=== PATIENT | female | born 1930 | race Caucasian/White ===

== ENCOUNTER 2017-12-01 11:52 | Inpatient (IN) ==
[2017-12-01] MEDS ORDERED: SALINE FLUSH 10ml SYRINGE IVF PRN (12:17)
[2017-12-01] MEDS ORDERED: NS 1,000 ML IV SCH (12:30)
[2017-12-01] MEDS ORDERED: ALBUTEROL/IPRATROPIUM 2.5mg-0.5mg/3ml NEB AEROSOL ONE (12:33)
[2017-12-01] MEDS: ACETAMINOPHEN 500 MG TABLET PO PRN (12:57)
[2017-12-01] MEDS ORDERED: LEVOFLOXACIN PB 750 MG/150 ML BAG IV ONE (12:58)
--- NOTE | 2017-12-01 13:52 | Emergency Department Report ---
General Adult HPI - General Chief complaint: Shortness of Breath/Dyspnea <December,Ozzie 12/01/17 14:00> Stated complaint: pain from one side, around back to other side <December,Ozzie 12/01/17 14:00> Source: patient <Kanika Linares 12/01/17 13:58> Mode of arrival: EMS <Kanika Linares 12/01/17 13:58> Limitations: no limitations <Kanika Linares 12/01/17 13:58> - History of Present Illness HPI narrative: Pt presents with a complaint of right sided pain which started during the night. She reports relief with heat and changing positions. She noted a fever this am. Denies N/V/D, diaphoresis, radiation, or dizziness. She does have a history of COPD, uses inhalers, but does not use home O2. <Kanika Linares 12/01/17 13:58> Onset (ago): hour(s) <Kanika Linares 12/01/17 13:58> - Related Data Home Medications Medication Instructions Recorded Confirmed Albuterol Sulfate [Proventil Hfa 2 puff INH QID PRN 12/01/17 12/01/17 90mcg] Gabapentin [Gabapentin] 300 mg PO TID 12/01/17 12/01/17 Levothyroxine Tab [Synthroid] 25 mcg PO ACB 12/01/17 12/01/17 PredniSONE [Deltasone 5 mg] 5 mg PO DAILY 12/01/17 12/01/17 Sertraline [Zoloft] 50 mg PO DAILY 12/01/17 12/01/17 Trazodone [Desyrel] 150 mg PO HS 12/01/17 12/01/17 hydroCHLOROthiazide 25 mg PO DAILY 12/01/17 12/01/17 [Hydrochlorothiazide] sulfaSALAzine [Sulfasalazine] 1,000 mg PO TID 12/01/17 12/01/17 Previous Rx's Medication Instructions Recorded Xanax (alprazolam) 0.5 mg tablet 1 mg PO HS #60 tab 11/13/17 <December,Ozzie 12/01/17 14:00> Allergies Allergy/AdvReac Type Severity Reaction Status Date / Time nitrofurantoin Allergy Severe Hives Verified 12/01/17 12:16 azithromycin Allergy Unknown EXTREME Verified 12/01/17 12:08 BOWEL UPSET <eb 12/01/17 14:00> Review of Systems All systems: reviewed and negative except as stated <Kanika Linares 13:58> Constitutional: Reports: as per HPI <Kanika Linares 12/01/17 13:58> Cardiovascular: Reports: as per HPI <Kanika Linares 12/01/17 13:58> Respiratory: Reports: as per HPI <Kanika Linares 12/01/17 13:58> Gastrointestinal: Reports: as per HPI <Kanika Linares 12/01/17 13:58> Musculoskeletal: Reports: as per HPI <Kanika Linares 12/01/17 13:58> Neurological: Reports: as per HPI <Kanika Linares 12/01/17 13:58> [facility] Medical History (Last Reviewed 08/29/17 @ 10:49 by Jaison Perez MD) Osteoarthritis of both knees (Chronic Medical) Generalized osteoarthritis (Chronic Medical) Osteoarthritis of left shoulder (Chronic Medical) Insomnia (Chronic Medical) Hypercalcemia (Chronic Medical) Depression (Chronic Medical) COPD (chronic obstructive pulmonary disease) (Chronic Medical) Chronic colitis (Chronic Medical) Benign essential hypertension (Chronic Medical) Good control. 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 Thyroid cancer (Chronic Medical ~2007) No clinical evidence of cancer recurrence. Hyperparathyroidism, primary (Chronic Medical ~2006) Asymptomatic. Asthma (Acute Medical) DJD of shoulder (Chronic Medical) Hay fever (Chronic Medical) Thyrotoxicosis (Resolved Medical) Hx of severe sun exposure (Inactive Medical) Malignant neoplasm of breast (Inactive Medical) Ovarian cancer (Inactive Medical) Pulmonary embolism (Inactive Medical) <December,Ozzie 12/01/17 14:00> Surgical History: both rotator cuffs replacement <Kanika Linares 13:58> Family History: Family History (Last Reviewed 08/29/17 @ 10:49 by Jaison Perez MD) Sister Thyroid disease Cancer of breast Father Heart disease Mother Heart disease Brother Cancer of lung Brother Cancer of colon Brother Cancer of kidney Sister Cancer of lung <December,Ozzie 12/01/17 14:00> - Social History Smoking status: Former smoker <VijayKanika R Curt 12/01/17 13:58> Substance use type: does not use <VijayKanika R Curt 12/01/17 13:58> Alcohol intake: current <Kanika Linares 12/01/17 13:58> Alcohol intake frequency: holidays/special occasions only <VijayKanikafranklin Elias 12/01/17 13:58> Household members: none <Kanika Linares 12/01/17 13:58> Current occupational status: retired <VijayKanika R 12/01/17 13:58> Physical Exam - Limitations Limitations: no limitations <VijayKanika R Curt 12/01/17 13:58> - General General appearance: alert, in no apparent distress <Kanika Linares Curt 12/01 13:58> - Normal Exams: Head:: Normocephalic without trauma <VijayKanika Andree 12/01/17 13:58> Eyes:: Pupils are PERRLA w/ EOMI <VijayKanika R 12/01/17 13:58> Neck:: Full range of motion, without adenopathy <VijayKanika Andree 13:58> Cardiovascular:: Regular rate and rhythm, without murmur or gallop, Pulses 2+ all extremities, capillary refill, <2 seconds all extremities <Vijay Kanika R 12/01/17 13:58> Abdomen:: Bowel sounds positive, soft, non-tender, non-distended <Kanika Linares 12/01/17 13:58> Musculoskeletal:: No tenderness, or deformity noted, good range of motion, all extremities <VijayKanika R 12/01/17 13:58> Integumentary:: No rashes <Kanika Linares 12/01/17 13:58> Neurological:: Patient is alert, and oriented, cranial nerves, motor/sensory/ cerebellar, exams w/o gross deficits, to observation <Kanika Linares 13:58> Psychiatric:: Patient exhibits, appropriate attention, emotion and affect < Kanika Linares 12/01/17 13:58> - Expanded Respiratory Exam Location: Left: decreased breath sounds, Right: decreased breath sounds, Lower: decreased breath sounds <Kanika Linares 12/01/17 13:58> Course Vital Signs Temperature 102.4 F H 12/01/17 11:55 Pulse Rate 111 H 12/01/17 11:55 Respiratory Rate 43 H 12/01/17 11:55 Blood Pressure 123/57 12/01/17 11:55 Pulse Oximetry 82 L 12/01/17 11:55 Temperature 102.4 F H 12/01/17 11:57 Pulse Rate 93 12/01/17 12:04 Respiratory Rate 16 12/01/17 12:42 Blood Pressure 123/57 12/01/17 12:00 Pulse Oximetry 94 12/01/17 12:42 <DecemberOzzie 12/01/17 14:00> Medical Decision Making - [facility] Narrative Medical decision making narrative: Labs, X ray, and EKG reviewed. Results consistent with a RLL pneumonia. Tylenol given for fever. NS initiated. Blood cultures obtained. Levofloxacin started. Pt requiring O2 of 2-4 l nc to maintain SpO2 90-94. Findings and plan discussed with pt. Hospitalist notified of need for admission. <Kanika Linares 12/01/17 13:58> - Differential Diagnosis AMI, atypical chest pain, pneumonia, COPD exacerbation <Kanika Linares 12/01/17 13:58> - Lab Data Lab results reviewed: Yes: I reviewed the patient's lab results. <Kanika Linares 12/01/17 13:58> Result diagrams: 12/01/17 12:31 12/01/17 12:30 <DecemberOzzie [facility] 12/01/17 14:00> Lab Results 12/01/17 12/01/17 12/01/17 Range/Units 12:30 12:31 13:29 WBC 14.2 H (4.5-11.0) T/MM3 RBC 4.28 (4.00-5.20) M/MM3 Hgb 11.9 L (12-16) GM/DL Hct 37.8 (36-46) % MCV 88.3 (80-100) UM3 MCH 27.8 (26-34) UUG MCHC 31.5 (31-37) GM/DL RDW Std Deviation 48.1 (36.9-50.2) FL Plt Count 250 (130-400) T/MM3 MPV 8.7 L (9.4-12.4) UM3 Immature Gran % (Auto) 0.2 (0.0-0.5) % Neut % (Auto) 82.3 H (33-66) % Lymph % (Auto) 9.3 L (23-45) % [place] % (Auto) 8.0 (0-9.0) % Eos % (Auto) 0.1 (0-4) % Baso % (Auto) 0.1 (0-2) % Neut # (Auto) 11.7 H (1.8-7.7) T/MM3 Lymph # (Auto) 1.3 (1-4.8) T/MM3 [place] # (Auto) 1.1 H (0-0.8) T/MM3 Eos # (Auto) 0.0 (0-0.5) T/MM3 Baso # (Auto) 0.0 (0-0.2) T/MM3 Abs Immat Gran (auto) 0.03 (0.00-0.03) T/MM3 Turbidity < 20 (0-20) Sodium 142 (134-144) MEQ/L Potassium 3.1 L (3.6-5) MEQ/L Chloride 98 (98-107) MEQ/L Carbon Dioxide 34 H (22-30) MEQ/L Anion Gap 10 (5-15) meq/L BUN 26.0 H (7-17) MG/DL Creatinine 1.0 (0.7-1.2) mg/dL GFR Calculation 53 BUN/Creatinine Ratio 26 (6-26) RATIO Glucose 116 H (65-110) MG/DL Calculated Osmolality 279 (261-280) MOSM/KG Calcium 10.0 (8.4-10.2) MG/DL Total Bilirubin 0.50 (0.20-1.30) MG/DL Icterus Index < 2 (0-7) AST 21 (14-36) U/L ALT 15 (1-35) U/L Alkaline Phosphatase 68 (38-126) U/L Troponin I < 0.012 (0-0.12) ng/ml NT-Pro-B Natriuret Pep 255 H (0-175) pg/mL Total Protein 6.8 (6.3-8.2) g/dL Albumin 4.0 (3.5-5.0) g/dL Globulin 2.8 (2.4-3.6) G/DL Albumin/Globulin Ratio 1.4 (1.1-2.2) RATIO Plasma Lactate 1.7 (0.6-2.2) MMOL/L Specimen Hemolysis < 15 (0-25) Ur Collection Type Urine, cath straight Urine Color Yellow (YELLOW) Urine Clarity Clear Urine pH 5.5 (5.0-8.0) Ur Specific [place] 1.015 (1.015-1.025) Urine Protein Negative (NEGATIVE) Urine Glucose (UA) Negative (NEGATIVE) Urine Ketones Negative (NEGATIVE) Urine Occult Blood Negative (NEGATIVE) Urine Nitrate Negative (NEGATIVE) Urine Bilirubin Negative (NEGATIVE) Urine Urobilinogen 0.2 (NORMAL) EU/DL Ur Leukocyte Esterase Negative (NEGATIVE) Urinalysis Comment Microscopic not ind. <12/01/17 14:00> - Radiology Data Radiology results reviewed: Yes: I reviewed the patient's radiology results. < Kanika Linares 12/01/17 13:58> RLL pneumonia per December <Kanika Linares 12/01/17 13:58> - EKG Data EKG #1 EKG attestation: Yes: I reviewed and interpreted this EKG. <December,Ozzie 12/01 14:00> Yes: I reviewed and interpreted this EKG. <Kanika Linares 12/01/17 13:58> EKG shows normal: sinus rhythm, axis, intervals, QRS complexes <December,Ozzie 14:00> sinus rhythm <Kanika Linares 12/01/17 13:58> Rate: normal <December,Ozzie 12/01/17 14:00> normal <Kanika Linares 12/01/17 13:58> Rhythm: NSR <12/01/17 14:00> NSR <Kanika Linares 12/01/17 13:58> Interpretation: nonspecific ST-T wave changes <12/01/17 14:00> Disposition Clinical Impression: CAP (community acquired pneumonia) Qualifiers: Laterality: right Lung location: lower lobe of lung Qualified Code(s): J18.1 - Lobar pneumonia, unspecified organism <12/01/17 14:00> Disposition: [address] [facility] [place] Acute Care <12/01/17 14:00> Condition: Improved <12/01/17 14:00> Instructions: <12/01/17 14:00> Prescriptions: No Action Levothyroxine Tab [Synthroid] 25 mcg PO ACB Albuterol Sulfate [Proventil Hfa 90mcg] 2 puff INH QID PRN PRN Reason: Shortness Of Air/Wheezing sulfaSALAzine [Sulfasalazine] 1,000 mg PO TID Trazodone [Desyrel] 150 mg PO HS Sertraline [Zoloft] 50 mg PO DAILY PredniSONE [Deltasone 5 mg] 5 mg PO DAILY hydroCHLOROthiazide [Hydrochlorothiazide] 25 mg PO DAILY Gabapentin [Gabapentin] 300 mg PO TID Xanax (alprazolam) 0.5 mg tablet 1 mg PO HS #60 tab < 14:00> Referrals: Pratima Kent, [employer] APPRENTICE [Primary Care Provider] - <12/01/17 14:00> Forms: <12/01/17 14:00> Time of Disposition: 13:57 <Kanika Linares 12/01/17 13:58> - Seen By: midlevel <Kanika Linares 12/01/17 13:58>
--- NOTE | 2017-12-01 14:35 | History & Physical Report ---
History of Present Illness Date: 12/01/17 Chief complaint: Fever, coughing HPI: Gregoria is a pleasant 86 yr old female who resides independently in [facility] under the primary care of Pratima Urena APRN. She reports having chest pain that moved across her chest during the night. This morning she noted to have a fever up to 102, accompanied with continued pain across the chest. She began shaking and was concerned about the severity of her illness, thus presenting to the emergency room for further evaluation and treatment. Was found to be hypoxic with room air saturations of 80%, respiration rate 28, fever on arrival 102.4. Labs revealed leukocytosis with white count of 14.2, 82% neutrophils. Asked Love be slightly low at 3.1. Troponin negative, venous lactate 1.7. Urinalysis negative. Chest x-ray did reveal solid patient in the right middle lobe. She continued to require 2-4 liters by nasal cannula to maintain adequate saturations. She was given a Duoneb treatment and started on Levaquin for antimicrobial coverage. Hospitalist services were contacted and accepted patient for inpatient admission for further evaluation and treatment. It is expected that her stay will be greater than 2 overnights. Review of Systems All systems PM: 10-point ROS was reviewed, no additional remarkable complaints except - Constitutional Constitutional: Present: fatigue, fever(s) - Cardiovascular Cardiovascular: Present: chest pain - Respiratory Respiratory: Present: cough Past Medical History Medical History: Medical History (Last Reviewed 08/29/17 @ 10:49 by Jaison Perez MD) Osteoarthritis of both knees (Chronic) Generalized osteoarthritis (Chronic) Osteoarthritis of left shoulder (Chronic) Insomnia (Chronic) Hypercalcemia (Chronic) Depression (Chronic) COPD (chronic obstructive pulmonary disease) (Chronic) Chronic colitis (Chronic) Benign essential hypertension (Chronic) Good control. Anxiety (Chronic) Allergic rhinitis (Chronic) Hypothyroidism associated with surgical procedure (Chronic) Onset Date: ~2007 Clinically euthyroid; confirm chemically. Thyroid cancer (Chronic) Onset Date: ~2007 No clinical evidence of cancer recurrence. Hyperparathyroidism, primary (Chronic) Onset Date: ~2006 Asymptomatic. Asthma DJD of shoulder Hay fever Thyrotoxicosis Hx of severe sun exposure Malignant neoplasm of breast Ovarian cancer Pulmonary embolism Surgical History: Bilateral rotator cuffs replacement. Hysterectomy-1981. Thyroidectomy-2009. Left breast mastectomy-2010 Family History: Sister Thyroid disease Cancer of breast Father Heart disease Mother Heart disease Brother Cancer of lung Brother Cancer of colon Brother Cancer of kidney Sister Cancer of lung Family History: As Above - Social History Smoking status: Former smoker (Quit 1971) Substance use type: does not use Alcohol intake frequency: does not drink Housing: house Current occupational status: retired Social history: Resides independently at home. Primary care provider-Pratima Kent APRN Medications Home Medications Medication Instructions Recorded Confirmed Type Xanax (alprazolam) 0.5 mg tablet 1 mg PO HS #60 tab 11/13/17 12/01/17 Rx Albuterol Sulfate [Proventil Hfa 2 puff INH QID PRN 12/01/17 12/01/17 History 90mcg] Gabapentin [Gabapentin] 300 mg PO TID 12/01/17 12/01/17 History Levothyroxine Tab [Synthroid] 25 mcg PO ACB 12/01/17 12/01/17 History PredniSONE [Deltasone 5 mg] 5 mg PO DAILY 12/01/17 12/01/17 History Sertraline [Zoloft] 50 mg PO DAILY 12/01/17 12/01/17 History Trazodone [Desyrel] 150 mg PO HS 12/01/17 12/01/17 History hydroCHLOROthiazide 25 mg PO DAILY 12/01/17 12/01/17 History [Hydrochlorothiazide] sulfaSALAzine [Sulfasalazine] 1,000 mg PO TID 12/01/17 12/01/17 History Allergies Allergy/AdvReac Type Severity Reaction Status Date / Time nitrofurantoin Allergy Severe Hives Verified 12/01/17 12:16 azithromycin Allergy Unknown EXTREME Verified 12/01/17 12:08 BOWEL UPSET Exam Vital Signs: Temperature 102.4 F H 12/01/17 11:57 Pulse Rate 93 12/01/17 12:04 Respiratory Rate 16 12/01/17 12:42 Blood Pressure 123/57 12/01/17 12:00 Pulse Oximetry 94 12/01/17 12:42 - Constitutional Present: mild distress, well nourished, well developed - Routine HEENT Exam Eye: Present: EOMI ENT: Present: mucous membranes moist, dentition normal - Routine Respiratory Exam Comments: course breath sounds - Routine Cardiovascular Exam Present: RRR, S1, S2. Absent: murmur - Routine Abdominal Exam Present: soft, normoactive bowel sounds, non distended. Absent: tenderness - Routine Extremities Exam Present: no edema, pulses intact - Routine Skin Exam Present: intact, dry, warm - Routine Neurological Exam Present: alert, oriented X3, CN II-XII intact, moving all extremities - Routine Psychiatric Exam Present: normal affect, normal thought process, cooperative Results - Labs CBC & Chem 7: 12/01/17 12:31 12/01/17 12:30 Assessment and Plan (1) CAP (community acquired pneumonia) Current visit: Yes Status: Acute Assessment and Plan: Impression Sepsis- leukocytosis, tachypnea, hypoxia, pneumonia Community-acquired pneumonia Acute Respiratory failure with hypoxia. Hypokalemia- POA 3.1 COPD Hypertension Hypothyroidism Asthma Depression, anxiety Insomnia Osteoarthritis with chronic steroid use Plan Admit patient to inpatient status under the care of Dr. Hernandez for sepsis with pneumonia Patient was given IV Levaquin while in the emergency room. Initial lactate was 1.7, will repeat at 1700 as per sepsis protocol. Blood cultures pending. Will continue with IV Levaquin daily for antimicrobial coverage. Duoneb breathing tx QID and Pulmicort BID. Oxygen therapy to keep sats greater than 92% She takes Prednisone 5 mg daily. Will increase Prednisone to 20 mg daily given acute illness. Replace potassium orally Monitor on cardiac telemetry NS at 100 ml/hr for hydrations Tylenol all available as needed for fever He does request to have access to her routine bedtime medications. Due to her insomnia, this includes Xanax and trazodone She does wish to be a do not resuscitate Consult with PT and OT for tomorrow given the patient does reside independently Will discuss further orders and plan of care with attending, Dr. Hernandez At time of discharge medical care will return to primary care provider, Pratima Krishna DVT Prophylaxis: SCD's Resuscitation Status: Do Not Resuscitate - Time spent with patient Time with patient PN: 50 minutes - Physician Narrative Narrative: Date: 12/01/17 Time: 1432 Hospital Course Summary Disclaimer: The visit summary below is not to be considered part of the above Progress Note. Hospital Course: Impression Sepsis- leukocytosis, tachypnea, hypoxia, pneumonia Community-acquired pneumonia Acute Respiratory failure with hypoxia. Hypokalemia- POA 3.1 COPD Hypertension Hypothyroidism Asthma Depression, anxiety Insomnia Osteoarthritis with chronic steroid use 12/01/17- Admission Admit patient to inpatient status under the care of Dr. Hernandez for sepsis with pneumonia Patient was given IV Levaquin while in the emergency room. Initial lactate was 1.7, will repeat at 1700 as per sepsis protocol. Blood cultures pending. Will continue with IV Levaquin daily for antimicrobial coverage. Duoneb breathing tx QID and Pulmicort BID. Oxygen therapy to keep sats greater than 92% She takes Prednisone 5 mg daily. Will increase Prednisone to 20 mg daily given acute illness. Replace potassium orally Monitor on cardiac telemetry NS at 100 ml/hr for hydrations Tylenol all available as needed for fever He does request to have access to her routine bedtime medications. Due to her insomnia, this includes Xanax and trazodone She does wish to be a do not resuscitate Consult with PT and OT for tomorrow given the patient does reside independently Will discuss further orders and plan of care with attending, Dr. Hernandez At time of discharge medical care will return to primary care provider, Pratima Krishna
[2017-12-01 14:36] VITALS: BMI 31.4
[2017-12-01] MEDS: ALBUTEROL/IPRATROPIUM 2.5mg-0.5mg/3ml NEB AEROSOL SCH ×2 (15:33→19:54)
[2017-12-01] MEDS: NS 1,000 ML IV SCH (15:35)
[2017-12-01] MEDS: GABAPENTIN 300 MG CAPSULE PO SCH ×2 (15:47→21:05)
[2017-12-01] MEDS: PredniSONE 20 MG TABLET PO SCH (15:47)
[2017-12-01] MEDS: BUDESONIDE INH.SOLN 0.5mg/2ml NEB AEROSOL SCH (19:54)
[2017-12-01] MEDS: ALPRAZolam 0.5 MG TABLET PO SCH (21:05)
[2017-12-01] MEDS: TRAZODONE 50 MG TABLET PO SCH (21:05)
[2017-12-02] MEDS: NS 1,000 ML IV SCH ×2 (00:03→11:32)
[2017-12-02] MEDS: LEVOTHYROXINE 25 MCG TABLET PO SCH (06:30)
[2017-12-02] MEDS: ALBUTEROL/IPRATROPIUM 2.5mg-0.5mg/3ml NEB AEROSOL SCH ×4 (07:13→19:15)
[2017-12-02] MEDS: BUDESONIDE INH.SOLN 0.5mg/2ml NEB AEROSOL SCH ×2 (07:13→19:15)
[2017-12-02] MEDS: ACETAMINOPHEN 500 MG TABLET PO PRN (08:38)
[2017-12-02] MEDS: SERTRALINE 50 MG TABLET PO SCH (08:39)
[2017-12-02] MEDS: PredniSONE 20 MG TABLET PO SCH (08:39)
[2017-12-02] MEDS: GABAPENTIN 300 MG CAPSULE PO SCH ×3 (08:39→22:22)
[2017-12-02] MEDS: LEVOFLOXACIN PB 750 MG/150 ML BAG IV SCH (08:43)
--- NOTE | 2017-12-02 08:52 | XRay Report ---
Indication: cough, fever PROCEDURE: XR chest 1V: Encounter: Initial Comparison: 11/04/2008 Findings: There is some soft tissue prominence the right suprahilar region with some volume loss in the anterior aspect of the right upper lobe suspicious for underlying neoplasm or pneumonia. No definite pleural effusion. Heart size is normal. Trachea is midline. The patient has undergone bilateral shoulder replacement surgeries. Impression: Right hilar prominence with some volume loss in the anterior right lung outlining the minor fissure. Follow-up to resolution is recommended to exclude neoplasm. .
[2017-12-02] MEDS ORDERED: PredniSONE 5 MG TABLET PO SCH (09:00)
--- NOTE | 2017-12-02 09:01 | Progress Note ---
- Date 12/02/17 Subjective: Gregoria was sitting in her chair. She doesn't much care for the oxygen, it's annoying in her nose. Otherwise, she's about the same as yesterday, possibly a little better. She hasn't been coughing much. She denies feeling short of breath. She hasn't had a fever since yesterday afternoon. She denies abdominal pain and she states that her appetite has been good. Her bowels are "barely" working. She denies swelling in her legs. She has chronic pain from "bad" OA ( She sees Dr. Socorro Morgan for OA - denies RA). Objective Vital signs: Temperature 99.7 F 12/02/17 08:00 Pulse Rate 93 12/02/17 08:00 Respiratory Rate 18 12/02/17 08:00 Blood Pressure 115/52 12/02/17 08:00 Pulse Oximetry 93 12/02/17 08:00 Height/Weight/BMI: Height 1.6 m Weight 80.5 kg Body Mass Index 31.4 - Constitutional Present: no acute distress, well nourished, well developed - Routine HEENT Exam Head: Present: normocephalic Eye: Present: PERRL. Absent: conjunctival icterus, scleral injection ENT: Present: mucous membranes moist - Routine Respiratory Exam Present: crackles (RLL) - Routine Cardiovascular Exam Present: RRR, S1, S2, murmur (2/6 systolic) - Routine Abdominal Exam Present: soft, non distended, non tender. Absent: normoactive bowel sounds ( hypoactive) - Routine Extremities Exam Present: no edema, pulses intact - Routine Musculoskeletal Exam Musculoskeletal: Present: other (hematoma to right lateral elbow, proximal forearm area) - Routine Skin Exam Present: dry, warm, ecchymosis (as above) - Routine Neurological Exam Present: alert, oriented X3, moving all extremities, vision grossly intact, hearing grossly intact, normal speech - Routine Psychiatric Exam Present: normal affect, normal thought process, cooperative Results - Labs CBC & Chem 7: 12/02/17 04:27 12/02/17 04:27 Assessment and Plan (1) CAP (community acquired pneumonia) Current visit: Yes Status: Acute Assessment and Plan: Impression Sepsis, Severe Sepsis (lactate 2.4) - leukocytosis, tachypnea, hypoxia, pneumonia Community-acquired pneumonia Acute Respiratory failure with hypoxia. Hypokalemia- POA 3.1 - resolved COPD Hypertension Hypothyroidism Asthma Depression, anxiety Insomnia Osteoarthritis with chronic steroid use Plan Sepsis secondary to CAP WBC increased to 16.3, though may be more reflective of increased prednisone dose. Cont Levaquin day #2. Renal function stable. Repeat lactate was also higher than initial at 2.4, which indicates severe sepsis. Will recheck lactate and check procalcitonin. Hypoxia persists, she's requiring 2-3 L of oxygen to maintain sats >90%. Cont DuoNeb and Pulmicort. Start acapella. Repeat CXR in am. If lactate this am is normal, consider stopping or reducing rate of IVF. Hypokalemia Resolved OA pain Cont prednisone 20 mg BID (home dose is 5 mg daily) Add [place] 10 mg BID - pt reports that she takes this BID PRN at home. PT evaluation: safe with functional assessments, no IP PT necessary. Recommend to walk TID with nursing. DVT Prophylaxis: SCD's Resuscitation Status: Do Not Resuscitate - Physician Narrative Physician: Dorothea Morgan MD Narrative: Date: 12/02/17 Time: 5:55 PM-I reviewed this chart, the patient history, and the END FRAZER's/PA's documented findings as above. We discussed and formulated the assessment and plan as above with the additions below.-Dr. Morgan The patient was seen this evening in her room. She states she is feeling better. She no longer has the upper abdominal pain that she had yesterday that brought her into the emergency room. She has not felt feverish or had chills. She denies any cough. She denies any rhinorrhea. She states her oxygen saturation is chronically low around 88 or 89% on room air. She is not on oxygen at home. She had a small bowel movement today, but feels constipated. She has not had a normal bowel movement since Saturday or Saturday. Overall, she states she feels well and wants to go home as soon as possible. She states her readings are just a little bit tight. She is really on IV fluids. She states she is eating and drinking well. On exam she is alert and oriented 3 and in no acute distress. Chest reveals some mild crackles in the right base. Cardiovascular reveals a regular rate and rhythm. Abdomen is soft and nontender. Extremities are free of edema. Impression Community-acquired pneumonia-Levaquin initiated 12/01/2017 Severe sepsis Probable COPD exacerbation Acute hypoxic respiratory failure Chronic low-dose steroids for arthritis Leukocytosis Anemia Plan Continue Levaquin, increase dose steroids, breathing treatments, supplemental oxygen. Recheck chest x-ray tomorrow. Agree with increased activity as tolerated. CBC with differential and basic metabolic profile tomorrow. Discussed recommendations for continued hospitalization with the patient regarding sepsis, pneumonia and O2 sats of 82% on room air yesterday which is much lower than her usual 88-89%. She states that she understands why she needs to stay in the hospital at this time for continued treatment. She was encouraged to continue walking in the halls with assistance 3 times a day. Hospital Course Summary Disclaimer: The visit summary below is not to be considered part of the above Progress Note. Hospital Course: 12/01/17- Admission Admit patient to inpatient status under the care of Dr. Hernandez for sepsis with pneumonia Patient was given IV Levaquin while in the emergency room. Initial lactate was 1.7, will repeat at 1700 as per sepsis protocol. Blood cultures pending. Duoneb breathing tx QID and Pulmicort BID. Oxygen to keep sats greater than 92% She takes Prednisone 5 mg daily; increase Prednisone to 20 mg daily given acute illness. Replace potassium orally. NS at 100 ml/hr for hydrations 12/02/17 Sepsis secondary to CAP WBC increased to 16.3, though may be more reflective of increased prednisone dose. Cont Levaquin day #2. Renal function stable. Repeat lactate was also higher than initial at 2.4, which indicates severe sepsis. Will recheck lactate and check procalcitonin. Hypoxia persists, she's requiring 2-3 L of oxygen to maintain sats >90%. Cont DuoNeb and Pulmicort. Start acapella. Hypokalemia - Resolved OA pain Cont prednisone 20 mg BID (home dose is 5 mg daily) Add [place] 10 mg BID - pt reports that she takes this BID PRN at home. PT evaluation: safe with functional assessments, no IP PT necessary. Recommend to walk TID with nursing.
[2017-12-02] MEDS: HYDROCODONE/APAP 10 MG/325 MG TABLET PO PRN ×2 (09:35→22:24)
[2017-12-02] MEDS ORDERED: PNEUMOCOCCAL 13 VACCINE 0.5ml INJECTION IM ONE (17:00)
[2017-12-02] MEDS: ALPRAZolam 0.5 MG TABLET PO SCH (22:22)
[2017-12-02] MEDS: TRAZODONE 50 MG TABLET PO SCH (22:23)
[2017-12-03] MEDS: LEVOTHYROXINE 25 MCG TABLET PO SCH (05:29)
[2017-12-03] MEDS: GABAPENTIN 300 MG CAPSULE PO SCH ×3 (08:35→22:03)
[2017-12-03] MEDS: PredniSONE 20 MG TABLET PO SCH (08:36)
[2017-12-03] MEDS: SERTRALINE 50 MG TABLET PO SCH (08:36)
[2017-12-03] MEDS: ALBUTEROL/IPRATROPIUM 2.5mg-0.5mg/3ml NEB AEROSOL SCH ×4 (09:00→20:36)
[2017-12-03] MEDS: BUDESONIDE INH.SOLN 0.5mg/2ml NEB AEROSOL SCH ×2 (09:06→20:36)
--- NOTE | 2017-12-03 09:09 | Progress Note ---
- Date 12/03/17 Subjective: Ruth feels a bit better today - both her breathing and OA pain seem better this am. She hasn't been coughing, and when she does cough nothing comes up ( but it feels like something should loosen up). She denies chest pain. She denies feeling dizzy. She denies abdominal pain or nausea or bloating, but states that she's been constipated. She took MOM yesterday without results and today is going to try prune juice. She is willing to go home on oxygen if needed. She's on 3L of O2 this am and her nurse is going to reduce the flow rate to 2L and assess response. Objective Vital signs: Temperature 97.3 F 12/03/17 07:18 Pulse Rate 61 12/03/17 07:18 Respiratory Rate 16 12/03/17 07:18 Blood Pressure 127/58 12/03/17 07:18 Pulse Oximetry 94 12/03/17 07:18 Height/Weight/BMI: Height 1.6 m Weight 80.5 kg Body Mass Index 31.4 - Constitutional Present: no acute distress, well nourished, well developed - Routine HEENT Exam Head: Present: normocephalic Eye: Present: PERRL. Absent: conjunctival icterus, scleral injection ENT: Present: mucous membranes moist, oropharynx clear - Routine Respiratory Exam Present: decreased breath sounds (right) - Routine Cardiovascular Exam Present: RRR, S1, S2 - Routine Abdominal Exam Present: soft, normoactive bowel sounds, non distended, non tender - Routine Extremities Exam Present: no edema, pulses intact - Routine Musculoskeletal Exam Musculoskeletal: Present: moving extremities well - Routine Skin Exam Present: dry, warm, ecchymosis (right arm) - Routine Neurological Exam Present: alert, oriented X3, CN II-XII intact, moving all extremities, vision grossly intact, hearing grossly intact, normal speech. Absent: altered mental status, facial asymmetry - Routine Psychiatric Exam Present: normal affect, normal thought process, cooperative Results - Labs CBC & Chem 7: 12/03/17 04:34 12/03/17 04:34 Assessment and Plan (1) CAP (community acquired pneumonia) Current visit: Yes Status: Acute Assessment and Plan: Impression Severe Sepsis (lactate 2.4) - leukocytosis, tachypnea, hypoxia, pneumonia Community-acquired pneumonia - Levaquin started 4/22/18 Acute Hypoxic respiratory failure. Hypokalemia- POA 3.1 - resolved COPD with probable exacerbation Anemia, normocytic Hypertension Hypothyroidism Asthma Depression, anxiety Insomnia Osteoarthritis with chronic steroid use Plan Sepsis secondary to CAP; hypoxia WBC improved to 12.5. Procalcitonin decreased from 2.75 --> 1.95. Cont Levaquin day #3. Renal function stable. Hypoxia persists, she's requiring 2-3 L of oxygen to maintain sats >90%. Cont DuoNeb and Pulmicort, acapella. CXR was personally reviewed: improved aeration of right lung compared to previous. Radiology report pending. Likely can begin tapering steroids soon - currently on 20 mg BID (home dose = 5 mg daily) Normocytic anemia Hgb decreased to 9.3. Iron studies pending. VSS. Continue activity/ambulation. Continue home meds for OA discomfort and anxiety. 12/03/2017-7 PM-I examined the patient independently. I reviewed this chart, the patient history, and the FORESTRY SUPERVISOR's/PA's documented findings as above. We discussed and formulated the assessment and plan as above with the additions below.-Dr. Morgan The patient was seen this evening in her room accompanied by her and son and his . She states she's feeling a little better. She was able to be weaned to room air while awake but when she was back in bed and asleep she was hypoxic. When I came to see her her oxygen was off and she was lying in bed talking to her family. O2 sat was 87% on room air. I did restart her oxygen at 2 L per nasal cannula. We'll check an oximetry tonight. The patient complains of swelling in her face which she relates to prednisone. She would like a lower dose. She states she has an ache in her "lung" and points to the right mid back. On exam she is alert and in no acute distress. Chest reveals decreased breath sounds in the bases. No wheezing. Cardiovascular reveals regular rate and rhythm. Abdomen is soft and nontender. Extremities are free of edema. Impression and plan Severe sepsis-resolved Pneumonia-continue Levaquin Acute on probable chronic hypoxic respiratory failure-continue oxygen, nocturnal oximetry tonight, the patient may require home O2. Consider ambulatory oximetry tomorrow if O2 sat is normal on room air. Iron, B-12 and folate are pending regarding anemia DVT Prophylaxis: SCD's Resuscitation Status: Do Not Resuscitate - Physician Narrative Narrative: Date: 12/03/17 Time: 0906 Hospital Course Summary Disclaimer: The visit summary below is not to be considered part of the above Progress Note. Hospital Course: 12/01/17- Admission Admit patient to inpatient status under the care of Dr. Hernandez for sepsis with pneumonia Patient was given IV Levaquin while in the emergency room. Initial lactate was 1.7, will repeat at 1700 as per sepsis protocol. Blood cultures pending. Duoneb breathing tx QID and Pulmicort BID. Oxygen to keep sats greater than 92% She takes Prednisone 5 mg daily; increase Prednisone to 20 mg daily given acute illness. Replace potassium orally. NS at 100 ml/hr for hydrations 12/02/17 Sepsis secondary to CAP WBC increased to 16.3, though may be more reflective of increased prednisone dose. Cont Levaquin day #2. Renal function stable. Repeat lactate was also higher than initial at 2.4, which indicates severe sepsis. Repeat lactate = 1.3. IVF dc'd. Hypoxia persists, she's requiring 2-3 L of oxygen to maintain sats >90%. Cont DuoNeb and Pulmicort. Start acapella. Hypokalemia - Resolved OA pain Cont prednisone 20 mg BID (home dose is 5 mg daily) Add [place] 10 mg BID - pt reports that she takes this BID PRN at home. PT evaluation: safe with functional assessments, no IP PT necessary. Recommend to walk TID with nursing. 12/03/17 Sepsis secondary to CAP; hypoxia WBC improved to 12.5. Procalcitonin decreased from 2.75 --> 1.95. Cont Levaquin day #3. Renal function stable. Hypoxia persists, she's requiring 2-3 L of oxygen to maintain sats >90%. Cont DuoNeb and Pulmicort, acapella. CXR was personally reviewed: improved aeration of right lung compared to previous. Radiology report pending. Likely can begin tapering steroids soon - currently on 20 mg BID (home dose = 5 mg daily) Normocytic anemia Hgb decreased to 9.3. Iron studies pending.
[2017-12-03] MEDS: LEVOFLOXACIN PB 750 MG/150 ML BAG IV SCH (09:19)
--- NOTE | 2017-12-03 09:25 | XRay Report ---
INDICATION: f/u pneumonia, abnormal cxr PROCEDURE: CHEST 2-VIEWS UPRIGHT (PA & LAT) Encounter: Initial COMPARISON: December 01, 2017 FINDINGS: Right upper lobe airspace consolidation is slightly improved. New small pleural effusions. No pneumothorax. Heart size and mediastinal contours are stable. Pulmonary vascularity is unchanged. Impression: Slight improvement in right upper lobe pneumonia with new small effusions. .
--- NOTE | 2017-12-03 13:15 | Pharmacy Consult- Renal Dosing ---
[facility] Consul-Renal Dosing - Laboratory Information 12/02/17 12/03/17 04:27 04:34 BUN 27.0 H 22.0 H Creatinine 1.0 0.9 - Consult Information The S Cr was 0.9 mg/dL with an estimated creatinine clearance between 39-41 mL/ min. It is recommended that the dose of Levofloxacin be 750 mg iv every 48 jhours. I change the Levofloxacin from 750 mg iv every 24 hours to 750 mg iv every 48 hours per the [facility] Renal Monoitering and Adjustment Program. Thanks, Good Brizuela. Pharmacist.
[2017-12-03] MEDS: HYDROCODONE/APAP 10 MG/325 MG TABLET PO PRN ×2 (15:01→21:03)
[2017-12-03] MEDS ORDERED: PredniSONE 20 MG TABLET PO SCH (19:09)
[2017-12-03] MEDS: TRAZODONE 50 MG TABLET PO SCH (22:01)
[2017-12-03] MEDS: ALPRAZolam 0.5 MG TABLET PO SCH (22:04)
[2017-12-04] MEDS: LEVOTHYROXINE 25 MCG TABLET PO SCH (06:04)
[2017-12-04] MEDS: BUDESONIDE INH.SOLN 0.5mg/2ml NEB AEROSOL SCH (07:37)
[2017-12-04] MEDS: ALBUTEROL/IPRATROPIUM 2.5mg-0.5mg/3ml NEB AEROSOL SCH ×3 (07:37→15:35)
[2017-12-04] MEDS: GABAPENTIN 300 MG CAPSULE PO SCH ×2 (09:17→14:08)
[2017-12-04] MEDS: SERTRALINE 50 MG TABLET PO SCH (09:17)
[2017-12-04] MEDS: HYDROCODONE/APAP 10 MG/325 MG TABLET PO PRN (09:54)
--- NOTE | 2017-12-04 11:21 | Pharmacy Consult- Renal Dosing ---
[facility] Consul-Renal Dosing - Laboratory Information 12/02/17 12/03/17 12/04/17 04:27 04:34 04:19 BUN 27.0 H 22.0 H 21.0 H Creatinine 1.0 0.9 1.0 - Consult Information The WBC's and the procalcitonin have both improved. WBC = 10 T.mm3 and the Procalcitonin = 1.96 ng/mL. The renal function has remained the same. In reviewing the Levofloxacin, I believe it is okay to change from IV med to PO mg with the same dose and frequency: Levofloxacin 750 mg iv every 48 hours to Levofloxacin 750 mg every 48 hours by mouth. Thanks, Good Brizuela, Pharmacist.
--- NOTE | 2017-12-04 11:54 | XRay Report ---
Indication: dyspnea PROCEDURE: XR chest 1V: Encounter: Initial Comparison: December 03, 2017 Findings: Persistent irregular opacity in the right hilar region and right upper lobe. Left lung is stable and grossly clear. Small left pleural effusion is unchanged. Right pleural effusion has decreased. No pneumothorax. Heart size and mediastinal contours are stable. Pulmonary vascularity appears normal. Impression: Persistent irregular somewhat masslike consolidation in the right upper lobe. Recommend chest CT for further evaluation. .
[2017-12-04 12:19] VITALS: BP 136/63; PULSE 84; TEMP 97.6
[2017-12-04] MEDS ORDERED: SALINE FLUSH 10ml SYRINGE ONE (13:40)
[2017-12-04] MEDS ORDERED: IOHEXOL 300mg/ml 75ml INJECTION ONE (13:40)
[2017-12-04] MEDS ORDERED: FOLIC ACID 1 MG TABLET PO SCH (13:45)
[2017-12-04] MEDS ORDERED: CYANOCOBALAMIN (B-12) 1,000mcg/ml INJECTION IM SCH (13:45)
--- NOTE | 2017-12-04 14:34 | CT Scan Report ---
Indication: abn CXR; possible mass PROCEDURE: CT chest w con: Encounter: Initial Comparison: Chest x-ray from today Technique: Axial CT images were performed through the chest after the administration of intravenous contrast. Coronal and sagittal two-dimensional reformats. Automated Exposure Control and Iterative Reconstruction dose reducing techniques were utilized. Contrast: Omnipaque 300 73 mL Findings: There is focal airspace consolidation in the right upper lobe along the major fissure with scattered groundglass opacities. There is also consolidation in the superior segment right lower lobe with evidence of partial atelectasis and volume loss. Small bilateral pleural effusions. Left lower lobe airspace consolidation is probably due to atelectasis. Small area of groundglass type opacity in the lingula. No pneumothorax. No axillary or mediastinal adenopathy. Prominent superior pericardial recess noted incidentally. Heart size is mildly enlarged. No pericardial effusion. The upper abdomen shows no acute findings. Impression: 1. Consolidation most pronounced in the right upper lobe consistent with an acute pneumonia. No CT evidence to suggest a neoplastic etiology or mass. Recommend continued radiographic follow-up to document clearance. 2. Small pleural effusions and lower lobe atelectasis. .
--- NOTE | 2017-12-04 15:35 | Discharge Summary ---
Discharge Information Date of admission: 12/01/17 13:37 Anticipated date of discharge: 12/04/17 Attending Physician: Gregoria Bowman MD Primary care physician: David Beltrán APRN - Discharge Diagnosis (1) CAP (community acquired pneumonia) Status: Acute Severe sepsis secondary to community acquired pneumonia. Acute on chronic respiratory failure with hypoxia. Hypokalemia - resolved. COPD with probable exacerbation. Anemia, normocytic. Chronic kidney disease, stage III. B12 deficiency. Folate deficiency. Asthma. Hypertension. Hypothyroidism. Depression. Anxiety. Insomnia. Osteoarthritis. Chronic steroid use. - Procedures Procedures: Nocturnal oximetry tonight of 12/03-12/04 revealing 10 minutes with oxygen saturation < 89% but it should be noted the patient was on room air the initial 1 hour of the study after which supplemental oxygen was initiated at 1 L due to repetitive desaturations during the initial hour. Ambulatory oximetry on 12/04/17 to have oxygen saturation 83% on room air at rest and to require 2 L oxygen to maintain saturation above 90% with ambulation. - Laboratory Labs: 12/01/17 12/02/17 12/03/17 12/04/17 WBC 14.2 16.3 12.5 10.3 Hgb 11.9 10.1 9.3 9.6 Plt 250 228 213 229 Na 142 142 140 141 K 3.1 3.8 4.0 4.2 BUN 26 27 22 21 SCr 1.0 1.0 0.9 1.0 GFR 53 53 59 53 Glu 116 102 103 102 12/01/17 UA - negative Trop - <0.012 BNP - 255 Lactate - 1.7 at 12:30, 2.4 at 17:26 12/02/17 Lactate - 1.3 at 9:33 then 1.3 at 13:08 Procalcitonin - 2.75 12/03/17 Procalcitonin - 1.95 Iron - 28 (low) TIBC - 306 % Saturation - 9% (borderline low) B12 - 263 (low) Folate - 4.5 - Microbiology Preliminary micro results at discharge 12/01/17 12:30 Blood Culture - Preliminary Peripheral/Iv Start No Growth After 3 Days 12/01/17 12:30 Blood Culture - Preliminary Peripheral/Iv Start No Growth After 3 Days - Radiology Radiology: Date of Exam: 12/01/17 Type of Exam(s): XR chest 1V Reason for Exam(s): cough, fever Findings: There is some soft tissue prominence the right suprahilar region with some volume loss in the anterior aspect of the right upper lobe suspicious for underlying neoplasm or pneumonia. No definite pleural effusion. Heart size is normal. Trachea is midline. The patient has undergone bilateral shoulder replacement surgeries. Impression: Right hilar prominence with some volume loss in the anterior right lung outlining the minor fissure. Follow-up to resolution is recommended to exclude neoplasm. Date of Exam: 12/03/17 Type of Exam(s): XR chest 2V Reason for Exam(s): f/u pneumonia, abnormal cxr FINDINGS: Right upper lobe airspace consolidation is slightly improved. New small pleural effusions. No pneumothorax. Heart size and mediastinal contours are stable. Pulmonary vascularity is unchanged. Impression: Slight improvement in right upper lobe pneumonia with new small effusions. Date of Exam: 12/04/17 Type of Exam(s): XR chest 1V Reason for Exam(s): dyspnea Findings: Persistent irregular opacity in the right hilar region and right upper lobe. Left lung is stable and grossly clear. Small left pleural effusion is unchanged. Right pleural effusion has decreased. No pneumothorax. Heart size and mediastinal contours are stable. Pulmonary vascularity appears normal. Impression: Persistent irregular somewhat masslike consolidation in the right upper lobe. Recommend chest CT for further evaluation. Date of Exam: 12/04/17 Type of Exam(s): CT chest w con Reason for Exam(s): abn CXR; possible mass Findings: There is focal airspace consolidation in the right upper lobe along the major fissure with scattered groundglass opacities. There is also consolidation in the superior segment right lower lobe with evidence of partial atelectasis and volume loss. Small bilateral pleural effusions. Left lower lobe airspace consolidation is probably due to atelectasis. Small area of groundglass type opacity in the lingula. No pneumothorax. No axillary or mediastinal adenopathy. Prominent superior pericardial recess noted incidentally. Heart size is mildly enlarged. No pericardial effusion. The upper abdomen shows no acute findings. Impression: 1. Consolidation most pronounced in the right upper lobe consistent with an acute pneumonia. No CT evidence to suggest a neoplastic etiology or mass. Recommend continued radiographic follow-up to document clearance. 2. Small pleural effusions and lower lobe atelectasis. History of Present Illness HPI: Gregoria Loza is a pleasant 86-year-old female who resides independently in [facility] under the primary care of David Beltrán APRN. She reports having chest pain that moved across her chest during the night of 12/02/17. On the morning of 12/03/17 she noted to have a fever up to 102 at home, accompanied with continued pain across the chest. She began shaking and was concerned about the severity of her illness, thus presenting to the emergency room for further evaluation and treatment. Upon arrival to the ED, she was found to be hypoxic with room air saturations of 80%, respiration rate 28, and fever of 102.4. Labs revealed leukocytosis with white count of 14.2 and 82% neutrophils. Potassium was slightly low at 3.1. Troponin negative, venous lactate 1.7. Urinalysis negative. Chest x-ray did reveal right hilar prominence with some volume loss in the anterior right lung outlining the minor fissure concerning for pneumonia. She continued to require 2-4 liters by nasal cannula to maintain adequate saturations. She denies use of home oxygen but does admit to frequently noted hypoxia around 88-89% on routine clinic visits. In the ED, she was given a DuoNeb treatment and started on Levaquin IV for antimicrobial coverage of suspected pulmonary pathogens. The hospitalist services were contacted and accepted patient for inpatient admission for further evaluation and treatment. It is expected that her stay will be greater than 2 overnights. Objective Vital signs: Temperature 97.6 F 12/04/17 12:00 Pulse Rate 84 12/04/17 12:00 Respiratory Rate 16 12/04/17 12:00 Blood Pressure 136/63 12/04/17 12:00 Pulse Oximetry 91 12/04/17 12:00 Rhythm: Normal Sinus Rhythm Height/Weight/BMI: Height 5 ft 3 in Weight 180 lb 15.992 oz Body Mass Index 31.4 Comments: Patient is seen while resting in bed, talking on her phone, in no apparent distress. - Constitutional Present: no acute distress, well nourished, well developed, obese, cooperative - Routine HEENT Exam Head: Present: normocephalic, atraumatic Eye: Present: PERRL. Absent: conjunctival icterus ENT: Present: mucous membranes moist, oropharynx clear - Routine Respiratory Exam Present: CTA bilaterally. Absent: accessory muscle use, respiratory distress, rhonchi, wheezes Comments: Breathing easily on 2L NC without cough or conversational dyspnea. - Routine Cardiovascular Exam Present: RRR, S1, S2 - Routine Abdominal Exam Present: soft, normoactive bowel sounds, non distended, non tender - Routine Extremities Exam Present: edema (trace), full ROM, pulses intact Comments: Ambulates in hills and around room easily without assistance. - Routine Back/Spine/Pelvis Exam Back/Spine: Present: full ROM, kyphosis. Absent: vertebral tenderness - Routine Musculoskeletal Exam Musculoskeletal: Present: no clubbing or cyanosis, moving extremities well - Routine Skin Exam Present: intact, dry, warm Comments: Afebrile. - Routine Neurological Exam Present: alert, oriented X3, moving all extremities, hearing grossly intact, normal speech - Routine Lymphatic Exam Lymphatic: Absent: lymphedema - Routine Psychiatric Exam Present: normal affect, cooperative, good insight, good judgment Hospital Course This is a general summary of the patient's hospital course. For more details refer to the complete medical record. Hospital course: Gregoria Loza was admitted to inpatient status on 12/01/17 after being evaluated in the ED and found to be septic secondary to community acquired pneumonia as indicated by her fever, tachycardia, tachypnea, leukocytosis and hypoxia. She was also noted to have acute on chronic hypoxic respiratory failure as well as possible COPD exacerbation. On initial presentation in the ED, she was noted to be hypoxic at 80% on room air. She was placed on oxygen via NC for the duration of her admission ranging between 2-4L with nursing weaning as able. She denies use of home oxygen but review of prior clinic records reveals chronic hypoxia with baseline saturation between 88-89% on room air. Initial labs in the ED revealed WBC 14.3 which reached a max of 16.3 on 12/02/17 and lactate of 1.7. Serial lactates were obtained and increased to 2.4 (max) on the evening of 12/01/17 following her admission, qualifying her for severe sepsis. She was started on Levaquin 750mg IV with the first dose given in the ED. Serial lactates were obtained and trended down. Procalcitonin was elevated at 2.75 on 12/02/17 and improved on 12/03/17 at 1.95. Due to her chronic kidney disease, stage 3 with a baseline GFR ~55, her medications were renally adjusted thus the Levaquin was changed to every 48 hours instead of daily. She is on chronic steroid therapy for her osteoarthritis at 5mg daily which was increased to 20mg upon admission due to her respiratory failure. Hypokalemia (K 3.1) was noted on admission and corrected with supplementation. Blood cultures remain negative x 3 days and she has been afebrile since the evening of 12/01/17. Repeat chest x-rays revealed gradual improvement of pneumonia, though concerning for possible right upper lobe irregularly, recommending further evaluation with CT chest. Over the course of her hospitalization, her breathing slow improved but she continued to require supplemental oxygen with average of 2L. NC. She received respiratory cares throughout her admission including DuoNeb and Pulmicort nebulized treatments and encouraged use of acapella for pulmonary toileting. Given her severe sepsis , she received IV fluids which did not noticeably affect her breathing. Her oral intake improved and IV fluids were discontinued. Her home medications were resumed including her home norco for her osteoarthritis pain. She was seen and evaluated by PT and OT who recommended increased activity as tolerated and ambulation with nursing was encouraged. Normocytic anemia noted on admission with slight decrease during hospitalization, most likely secondary to IV hydration. Iron studies were obtained and revealed low iron, TIBC and percent saturation. B12 and folate were also noted to be low. Prior to discharge, she was started on B12, folate and multivitamin with iron for supplementation. Recommend follow up of levels as outpatient with primary care provider in 4-6 weeks. Nocturnal oximetry was obtained prior to discharged and revealed persistent hypoxia during sleep requiring 1-2L oxygen supplementation. Ambulatory oximetry prior to discharge revealed continued need for oxygen with exertion at 2L. She expressed openness to going home with oxygen which will be arranged by case management. She is encouraged to continue Levaquin every 48 hours x 3 doses until complete. She plans to discharge home with oxygen as well as nebulizer arranged by case management. She is to continue prednisone 10mg daily through 12/07/17 and then resume her home prednisone dose of 5mg daily. She was instructed to follow up with her primary care provided within the next week and return to the ED if any changes, worsening of condition or additional concerns. She is eager for discharge home and expresses verbal understanding to all instructions. Time spent with patient: greater than 35 minutes Resuscitation Status: Do Not Resuscitate Discharge Plan - Discharge Disposition Discharge Date: 12/04/17 Disposition: 01 Discharged Home, Self-Care *Condition: Improved Reason For Visit (Visit label in EMR): CAP,Acute hypoxic resp failure - Discharge Medications *Discharge Medications: New RX: Cyanocobalamin (Vitamin B-12) [Vitamin B-12] 1 tab PO DAILY #30 tab RX: Folic Acid [Folate] 1 tab PO DAILY #30 tab RX: Levofloxacin [Levaquin] 750 mg PO Q48H #4 tab RX: PredniSONE [Deltasone 5 mg] 5 mg PO DAILY #35 tab Budesonide [Pulmicort] 1 mg AEROSOL BID #20 ampul Multivitamin/Iron/Folic Acid [Multivitamin with Iron Tablet] 1 each PO DAILY 30 Days #30 tab RX: Albuterol/Ipratropium [Duoneb] 3 ml AEROSOL RTQID #90 each RX: Budesonide Inhalation [Pulmicort Inhalation] 0.5 mg AEROSOL RTBID #60 vial RX: Acetaminophen [Tylenol] 1,000 mg PO Q5H PRN tab PRN Reason: Discomfort Albuterol/Ipratropium [Duoneb] 1 unit AEROSOL Q6H #1 box Continue RX: Levothyroxine Tab [Synthroid] 25 mcg PO ACB RX: Albuterol Sulfate [Proventil Hfa 90mcg] 2 puff INH QID PRN PRN Reason: Shortness Of Air/Wheezing RX: sulfaSALAzine [Sulfasalazine] 1,000 mg PO DAILY RX: Trazodone [Desyrel] 150 mg PO HS RX: Sertraline [Zoloft] 50 mg PO DAILY RX: hydroCHLOROthiazide [Hydrochlorothiazide] 25 mg PO DAILY RX: Gabapentin 300 mg PO TID RX: Hydrocodone/Acetaminophen [Hydrocodon-Acetaminophn 10-325] 1 tab PO BID PRN PRN Reason: Pain Xanax (alprazolam) 0.5 mg tablet 1 mg PO HS #60 tab No Action RX: PredniSONE [Deltasone 5 mg] 5 mg PO DAILY - Discharge Packet/Instructions *Diet: Regular diet as tolerated. *Activity: As tolerated with oxygen as needed. *Pain Management/Treatment: Acetaminophen 650mg every 6 hours as needed. Nroco 10/325 twice a day as needed for pain. *Wound Care: Monitor IV site closely for signs of infection (fever, redness, swelling). Keep wound clean and dry with bandage as needed. Additional Instructions: You are being treated for a right upper lobe pneumonia with Levaquin. Take Levaquin as directed until complete - 1 tab every other day (every 48 hours) starting 12/05/17 until complete. You have been provided with home oxygen to use as needed. During your hospitalization, you were on 1- 2 liters of oxygen during the day and with activity and needed 2 liters of oxygen at night. *Expected Signs/Symptoms: Gradual improvement in shortness of breath with return to baseline functional status. *Notify Physician if: fever >100.8, increased shortness of breath, blood in sputum, chest pain, dizziness, passing out, change or worsening of condition, additional questions or concerns. *During Business Hours Contact: David Beltrán APRN at [phone]. *After Business Hours Contact: the on-call clinician for David Beltrán APRN at [phone] or contact the nearest emergency room. *Pending Lab/Results: Follow up w/your PCP (Blood cultures negative x 3 days) - Referrals/Follow Up *Referrals/Follow Up: David Beltrán APRN [Primary Care Provider] - 1 Week (Please call and schedule your natalie. APPOINTMENT WITH DAVID BELTRÁN TO BE SEEN IN 1 WEEK ON 12/11/2017 AT 10:30 AM. OFFICE NUMBER [phone]) - Patient Handouts Patient Handouts: Community Acquired Pneumonia (GEN) - Dismissal Complete Discharge Instructions are:: Complete Physician Narrative - Narrative Physician: Gregoria Bowman MD Attestation Narrative: Date: 12/04/17 Time: 1714 I have independently evaluated and examined this patient. I reviewed the chart, the patient's history, and the [employer]/PA's documented findings as above. We discussed and formulated the assessment and plan as above with additions as below: Mrs. Loza reports that her dyspnea and cough have improved significantly since admission. She reports chronic hypoxia as noted in that her oxygen saturation is always 88-89% when she goes to her physician's office but that it improves if she takes deep breaths. She was previously discharged with nocturnal oxygen after shoulder replacement but later discontinued it. Respirations are nonlabored today with good airflow although there are some faint crackles in the mid lung griffin posteriorly and laterally on the right; no wheezing appreciated. Chest x-ray obtained today and CT of the chest reviewed by myself-residual infiltrate but no evidence of mass by CT report. Home oxygen coordinated for short-term use but will require reassessment within 10 days to determine if there is ongoing hypoxia warranting chronic use. Given patient's description of preceding hypoxia and known chronic COPD I suspect home oxygen has been needed for some time.
[2017-12-04 15:43] VITALS: RESP 20; O2SAT 94
[2017-12-05] MEDS ORDERED: LEVOFLOXACIN 750 MG TABLET PO SCH (06:30)
[2017-12-05] MEDS ORDERED: LEVOFLOXACIN PB 750 MG/150 ML BAG IV SCH (09:00)
[2017-12-11] MEDS ORDERED: CYANOCOBALAMIN (B-12) 500mcg TABLET PO SCH (09:00)
== END 2017-12-04 16:40 | disposition home or self-care (01) | DRG 871 ==
LOC: ED 11:52 → MED 13:37 → SUATTDRO 13:37 → MED 14:28
PROVIDERS: ADMIT Internal Medicine; ATTEND Internal Medicine

== ENCOUNTER 2018-01-10 23:15 | Inpatient (IN) ==
[2018-01-10] MEDS ORDERED: NS 1,000 ML IV ONE (23:28)
[2018-01-10] MEDS ORDERED: ALBUTEROL/IPRATROPIUM 2.5mg-0.5mg/3ml NEB AEROSOL ONE (23:28)
[2018-01-10] MEDS ORDERED: PIPERACILLIN/TAZOBACTAM 3.375 GM in NS 100 ML IV ONE (23:39)
[2018-01-10] MEDS ORDERED: LEVOFLOXACIN PB 750 MG/150 ML BAG IV ONE (23:40)
[2018-01-10] MEDS ORDERED: ORPHENADRINE 60 MG/2 ML INJECTION IVP ONE (23:42)
[2018-01-10] MEDS ORDERED: KETOROLAC 15 MG/ML INJECTION IVP ONE (23:42)
[2018-01-10] MEDS ORDERED: IOHEXOL 350mg/ml 75ml INJECTION ONE (23:47)
--- NOTE | 2018-01-10 23:47 | Emergency Department Report ---
Asthma HPI - General Chief Complaint: Upper Respiratory Infection Stated Complaint: Pneumonia Time Seen by Provider: 01/10/18 23:19 Source: patient Mode of arrival: ambulatory Limitations: no limitations - History of Present Illness HPI Narrative: Pt was seen in the clinic earlier today and diagnosed with right upper lobe consolidated pneumonia, recurrent from 2 months ago. At that time the patient was advised that she should come into the hospital for IV antibiotics and IV fluids as well as respiratory treatments, but the patient declined. Patient was started on doxycycline as an outpatient, but developed worsening difficulty breathing tonight and posterior right upper chest wall pain especially with work of breathing. She decided to come to the hospital tonight to be hospitalized for her pneumonia. - Related Data Home Medications Medication Instructions Recorded Confirmed Gabapentin 300 mg PO TID 12/01/17 01/11/18 Sertraline [Zoloft] 50 mg PO DAILY 12/01/17 01/11/18 Trazodone [Desyrel] 150 mg PO HS 12/01/17 01/11/18 hydroCHLOROthiazide 25 mg PO DAILY 12/01/17 01/11/18 [Hydrochlorothiazide] ipratropium-albuterol 0.5 mg-3 3 ml INH BID ml 01/10/18 01/11/18 mg(2.5 mg base)/3 mL nebulization soln pseudoephedrine-guaifenesin ER 120 1 tab PO BID 01/10/18 01/11/18 mg-1,200 mg tab,extend release 12hr Previous Rx's Medication Instructions Recorded Acetaminophen [Tylenol] 1,000 mg PO Q5H PRN tab 12/04/17 Cyanocobalamin (Vitamin B-12) 1 tab PO DAILY #30 tab 12/04/17 [Vitamin B-12] PredniSONE [Deltasone 5 mg] 5 mg PO DAILY #35 tab 12/04/17 Pulmicort (Budesonide) 0.5 mg/2 mL 2 ml INH Q12H #120 ml 12/05/17 suspension for nebulization levothyroxine 25 mcg tablet 25 mcg PO ACB #90 tab 12/11/17 sulfasalazine 500 mg tablet 0.5 g PO TID #180 tab 12/11/17 Xanax (alprazolam) 0.5 mg tablet 1 mg PO HS #60 tab 12/16/17 [facility] 10 mg-acetaminophen 325 mg 1 tab PO TID PRN #90 tab 01/07/18 tablet Lasix (Furosemide) 20 mg tablet 20 mg PO DAILY PRN #30 tab 01/10/18 doxycycline hyclate 100 mg capsule 100 mg PO BID #20 cap 01/10/18 Allergies Allergy/AdvReac Type Severity Reaction Status Date / Time nitrofurantoin Allergy Severe Hives Verified 01/10/18 15:05 azithromycin Allergy Unknown EXTREME Verified 01/10/18 15:05 BOWEL UPSET Review of Systems All systems: reviewed and negative except as stated PFSH Patient Stated Medical History Chronic Obstructive Pulmonary Yes Disease (COPD) Pneumonia Yes Pulmonary Embolism Yes: 1978 Osteoarthritis Yes Other Musculoskeletal Yes: Bilat Knees"[id number]" Shingles Yes: Clinic Medical History (Last Reviewed 01/10/18 @ 15:12 by BERRY Cage) Osteoarthritis of both knees (Chronic Medical) Generalized osteoarthritis (Chronic Medical) Osteoarthritis of left shoulder (Chronic Medical) Insomnia (Chronic Medical) Hypercalcemia (Chronic Medical) Depression (Chronic Medical) COPD (chronic obstructive pulmonary disease) (Chronic Medical) Chronic colitis (Chronic Medical) Benign essential hypertension (Chronic Medical) Good control. 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 Thyroid cancer (Chronic Medical ~2007) No clinical evidence of cancer recurrence. Hyperparathyroidism, primary (Chronic Medical ~2006) Asymptomatic. Asthma (Acute Medical) DJD of shoulder (Chronic Medical) Hay fever (Chronic Medical) Thyrotoxicosis (Resolved Medical) Hx of severe sun exposure (Inactive Medical) Malignant neoplasm of breast (Inactive Medical) Ovarian cancer (Inactive Medical) Pulmonary embolism 1978 (Inactive Medical) Surgical History: Bilateral rotator cuffs replacement. Hysterectomy-1981. Thyroidectomy-2009. Left breast mastectomy-2010 Family History: Family History (Last Reviewed 01/10/18 @ 15:12 by BERRY Cage) Sister Thyroid disease Cancer of breast Father Heart disease Mother Heart disease Brother Cancer of lung Brother Cancer of colon Brother Cancer of kidney Sister Cancer of lung - Social History Smoking status: Former smoker Substance use type: does not use Alcohol intake: current Alcohol intake frequency: does not drink Housing: house Household members: none Current occupational status: retired Current residence: Apartment/Private Home Physical Exam - Limitations Limitations: no limitations - General General appearance: alert, in no apparent distress, other (on 2 L nasal cannula , the patient's routine, she has borderline hypoxemic variable between 87-93%) - Normal Exams: Head:: Normocephalic without trauma Eyes:: Pupils are PERRLA w/ EOMI, No scleral icterus, irritation, or foreign bodies noted ENMT:: No facial trauma, nasal exudates, pharyngeal erythema, or exudates are noted Neck:: Full range of motion, without adenopathy, JVD, bruits or thyromegaly Cardiovascular:: Regular rate and rhythm, without murmur or gallop, Pulses 2+ all extremities, capillary refill, <2 seconds all extremities Abdomen:: Bowel sounds positive, soft, non-tender, non-distended, no hepatosplenomegaly, masses or bruits noted Lymphatic:: No lymphadenopathy, or lymphedema noted Musculoskeletal:: No tenderness, or deformity noted, good range of motion, all extremities Integumentary:: No rashes, hives, or bruising noted, hair and nails, without abnormality Neurological:: Patient is alert, and oriented, cranial nerves, motor/sensory/ cerebellar, exams w/o gross deficits, to observation Psychiatric:: Patient exhibits, appropriate attention, emotion and affect - Chest Chest inspection: Present: normal inspection, symmetric chest wall rise, tenderness (rhomboid and intercostal tenderness posterior right upper thorax, medial to the scapula. Palpation reproduces the patient's posterior chest pain complaint) - Respiratory Respiratory exam: Present: wheezes, prolonged expiratory phase. Absent: normal lung sounds bilaterally (course mild wheezes bilaterally, positive rhonchi), respiratory distress, stridor, accessory muscle use Course Vital Signs Temperature 98.6 F 01/10/18 23:15 Pulse Rate 99 01/10/18 23:15 Respiratory Rate 20 01/10/18 23:15 Blood Pressure 118/55 01/10/18 23:15 Pulse Oximetry 89 L 01/10/18 23:15 Temperature 98.6 F 01/10/18 23:15 Pulse Rate 99 01/10/18 23:15 Respiratory Rate 20 01/10/18 23:15 Blood Pressure 118/55 01/10/18 23:15 Pulse Oximetry 89 L 01/10/18 23:15 Dyspnea - MDM Narrative Medical decision making narrative: After initial breathing treatments patient is oxygenating and breathing much easier CBC - minimal abnormalities only CMP - mild abnormalities consistent with dehydration and hypokalemia Lactate - normal CTA/PE - right upper lobe consolidation only, no PE Blood cultures were taken, patient is started on vancomycin/Levaquin/Zosyn protocol Case is discussed with Dr. Stinson admitting the patient inpatient for recurrent right upper lobe pneumonia, COPD exacerbation and hypoxemia - Lab Data Result diagrams: 01/10/18 23:41 01/10/18 23:41 Disposition Clinical Impression: Hypoxemia Right upper lobe pneumonia Qualifiers: Pneumonia type: due to unspecified organism Qualified Code(s): J18.1 - Lobar pneumonia, unspecified organism COPD (chronic obstructive pulmonary disease) Qualifiers: COPD type: COPD with acute exacerbation Qualified Code(s): J44.1 - Chronic obstructive pulmonary disease with (acute) exacerbation [place] [facility] [facility] [place] Prescriptions: No Action Trazodone [Desyrel] 150 mg PO HS Sertraline [Zoloft] 50 mg PO DAILY Cyanocobalamin (Vitamin B-12) [Vitamin B-12] 1 tab PO DAILY #30 tab PredniSONE [Deltasone 5 mg] 5 mg PO DAILY #35 tab hydroCHLOROthiazide [Hydrochlorothiazide] 25 mg PO DAILY Gabapentin 300 mg PO TID Acetaminophen [Tylenol] 1,000 mg PO Q5H PRN tab PRN Reason: Discomfort levothyroxine 25 mcg tablet 25 mcg PO ACB #90 tab Xanax (alprazolam) 0.5 mg tablet 1 mg PO HS #60 tab albuterol sulfate 2.5 mg/3 mL (0.083 %) solution for nebulization 2.5 mg CONTINOUS .x1 #3 ml [facility] 10 mg-acetaminophen 325 mg tablet 1 tab PO TID PRN #90 tab PRN Reason: Pain ipratropium-albuterol 0.5 mg-3 mg(2.5 mg base)/3 mL nebulization soln 3 ml INH BID ml doxycycline hyclate 100 mg capsule 100 mg PO BID #20 cap Lasix (Furosemide) 20 mg tablet 20 mg PO DAILY PRN #30 tab PRN Reason: edema Pulmicort (Budesonide) 0.5 mg/2 mL suspension for nebulization 2 ml INH Q12H #120 ml sulfasalazine 500 mg tablet 0.5 g PO TID #180 tab pseudoephedrine-guaifenesin ER 120 mg-1,200 mg tab,extend release 12hr 1 tab PO BID Referrals: Pratima Kent APRN [Primary Care Provider] - - Seen By: physician
--- NOTE | 2018-01-11 00:04 | History & Physical Report ---
History of Present Illness Date: 01/11/18 Chief complaint: back pain, soa HPI: Very pleasant 87-year-old female presented to the emergency room this evening after she begin feeling worse with shortness of breath and back pain. She became ill about five weeks ago was hospitalized for a few days treated for pneumonia. She said shes not been back to her usual self since then, but has been doing fairly OK. Over the past few days shes felt worse with some cough and shortness of breath and also some back pain in the upper and lateral back ribs. She uses 2 L of oxygen at home usually,She was deciding to 85% on that 2 L while in the emergency room. She had been prescribed doxycycline and had taken a single dose today, but her primary care doctor had one of her admittedly , she wanted to try it at home, but she was encouraged to she felt worse to come to the emergency room which she did this evening. She slightly anorexic, she denies any nausea vomiting or abdominal pain. She denies diarrhea. She is generally mildly week. Shes feeling better after some treatment she received in the emergency room. Review of Systems All systems PM: 10-point ROS was reviewed, no additional remarkable complaints except Past Medical History Medical History: Medical History (Last Reviewed 01/10/18 @ 15:12 by BERRY Cage) Osteoarthritis of both knees (Chronic) Generalized osteoarthritis (Chronic) Osteoarthritis of left shoulder (Chronic) Insomnia (Chronic) Hypercalcemia (Chronic) Depression (Chronic) COPD (chronic obstructive pulmonary disease) (Chronic) Chronic colitis (Chronic) Benign essential hypertension (Chronic) Good control. Anxiety (Chronic) Allergic rhinitis (Chronic) Hypothyroidism associated with surgical procedure (Chronic) Onset Date: ~2007 Clinically euthyroid; confirm chemically. Thyroid cancer (Chronic) Onset Date: ~2007 No clinical evidence of cancer recurrence. Hyperparathyroidism, primary (Chronic) Onset Date: ~2006 Asymptomatic. Asthma DJD of shoulder Hay fever Thyrotoxicosis Hx of severe sun exposure Malignant neoplasm of breast Ovarian cancer Pulmonary embolism Surgical History: Bilateral rotator cuffs replacement. Hysterectomy-1981. Thyroidectomy-2009. Left breast mastectomy-2010 Family History: Family History (Last Reviewed 01/10/18 @ 15:12 by BERRY Cage) Sister Thyroid disease Cancer of breast Father Heart disease Mother Heart disease Brother Cancer of lung Brother Cancer of colon Brother Cancer of kidney Sister Cancer of lung Family History: No Significant Family History - Social History Smoking status: Former smoker Alcohol intake frequency: does not drink Housing: apartment Household members: none Current occupational status: previously employed (former dental hygentst), retired Medications Home Medications Medication Instructions Recorded Confirmed Type Gabapentin 300 mg PO TID 12/01/17 01/11/18 History Sertraline [Zoloft] 50 mg PO DAILY 12/01/17 01/11/18 History Trazodone [Desyrel] 150 mg PO HS 12/01/17 01/11/18 History hydroCHLOROthiazide 25 mg PO DAILY 12/01/17 01/11/18 History [Hydrochlorothiazide] Acetaminophen [Tylenol] 1,000 mg PO Q5H PRN tab 12/04/17 01/11/18 Rx Cyanocobalamin (Vitamin B-12) 1 tab PO DAILY #30 tab 12/04/17 01/11/18 Rx [Vitamin B-12] PredniSONE [Deltasone 5 mg] 5 mg PO DAILY #35 tab 12/04/17 01/11/18 Rx Pulmicort (Budesonide) 0.5 mg/2 mL 2 ml INH Q12H #120 ml 12/05/17 01/11/18 Rx suspension for nebulization levothyroxine 25 mcg tablet 25 mcg PO ACB #90 tab 12/11/17 01/11/18 Rx sulfasalazine 500 mg tablet 0.5 g PO TID #180 tab 12/11/17 01/11/18 Rx Xanax (alprazolam) 0.5 mg tablet 1 mg PO HS #60 tab 12/16/17 01/11/18 Rx [place] 10 mg-acetaminophen 325 mg 1 tab PO TID PRN #90 tab 01/07/18 01/11/18 Rx tablet Lasix (Furosemide) 20 mg tablet 20 mg PO DAILY PRN #30 tab 01/10/18 01/11/18 Rx doxycycline hyclate 100 mg capsule 100 mg PO BID #20 cap 01/10/18 01/11/18 Rx ipratropium-albuterol 0.5 mg-3 3 ml INH BID ml 01/10/18 01/11/18 History mg(2.5 mg base)/3 mL nebulization soln pseudoephedrine-guaifenesin ER 120 1 tab PO BID 01/10/18 01/11/18 History mg-1,200 mg tab,extend release 12hr Allergies Allergy/AdvReac Type Severity Reaction Status Date / Time nitrofurantoin Allergy Severe Hives Verified 01/10/18 15:05 azithromycin Allergy Unknown EXTREME Verified 01/10/18 15:05 BOWEL UPSET Exam Vital Signs: Temperature 98.6 F 01/10/18 23:15 Pulse Rate 99 01/10/18 23:15 Respiratory Rate 20 01/10/18 23:15 Blood Pressure 118/55 01/10/18 23:15 Pulse Oximetry 89 L 01/10/18 23:15 Height/Weight/BMI: Height 1.6 m Weight 81.3 kg - Constitutional Present: no acute distress, obese - Routine HEENT Exam Head: Present: normocephalic Eye: Present: EOMI, PERRL ENT: Present: mucous membranes moist - Routine Neck Exam Present: supple - Routine Chest/Breast/Axilla Exam Chest wall: Absent: tenderness - Routine Respiratory Exam Present: CTA bilaterally. Absent: accessory muscle use, respiratory distress - Routine Cardiovascular Exam Present: S1, S2, no murmur - Routine Abdominal Exam Present: soft, normoactive bowel sounds, non distended, non tender - Routine Extremities Exam Present: no edema - Routine Skin Exam Present: intact - Routine Neurological Exam Present: alert, oriented X3 Results - Labs CBC & Chem 7: 01/10/18 23:41 01/10/18 23:41 - Imaging and Cardiology CT scan - chest Additional comments: negative for pulmonary embolism,RUL infiltrate reported, formal interp pending Assessment and Plan (1) Right upper lobe pneumonia Current visit: Yes Status: Acute (2) CAP (community acquired pneumonia) Current visit: No Status: Acute (3) Hypokalemia Current visit: Yes Status: Acute (4) Hypoxemia Current visit: Yes Status: Acute (5) COPD (chronic obstructive pulmonary disease) Current visit: Yes Status: Chronic (6) Chronic respiratory failure with hypoxia Current visit: No Status: Chronic (7) Benign essential hypertension Problem details: Good control. Current visit: No Status: Chronic - Physician Narrative Narrative: Date: 01/10/18 Time: 2343 seen by primary care, diagnosed with right upper lobe pneumonia. She does have COPD and she received some steroids in the emergency room and appears that she is chronically on steroids t TContinue IV steroids t, because of her recent hospital stay she had been dosed with vancomycin and Zosyn, continue Levaquin here sent tests for other bacteria strep pneumo and Legionella. repeat lab morning t PT OT evaluationT Hospital Course Summary Disclaimer: The visit summary below is not to be considered part of the above Progress Note.
[2018-01-11] MEDS: SALINE FLUSH 10ml SYRINGE IVF PRN ×2 (00:06→09:34)
[2018-01-11] MEDS ORDERED: METHYLPREDNISOLONE SOD SUCC 125mg/2ml INJECTION IVP ONE (00:48)
[2018-01-11 01:37] VITALS: BMI 32.0
[2018-01-11] MEDS ORDERED: GLUCOSE ORAL GEL 40% 37.5gm PO PRN (01:55)
[2018-01-11] MEDS ORDERED: DEXTROSE 50% SYRINGE 50ml (1 AMP) IVP PRN (01:55)
[2018-01-11] MEDS ORDERED: LEVOFLOXACIN PB 750 MG/150 ML BAG IV SCH ×2 (02:00→22:00)
[2018-01-11] MEDS ORDERED: ALBUTEROL 2.5mg/3ml (0.083%) NEB AEROSOL PRN (02:01)
[2018-01-11] MEDS ORDERED: NS FLUSH BAG 500ml IV PRN (02:52)
[2018-01-11] MEDS: POTASSIUM CHLORIDE 20 MEQ/15 ML ORAL LIQUID PO SCH ×3 (04:06→14:24)
[2018-01-11] MEDS ORDERED: METHYLPREDNISOLONE SOD SUCC IV SCH (06:00)
[2018-01-11] MEDS ORDERED: NS IV SCH (06:00)
[2018-01-11] MEDS: METHYLPREDNISOLONE SOD SUCC 125mg/2ml INJECTION IVP SCH ×3 (06:33→14:30)
[2018-01-11] MEDS: INSULIN ASPART 100unit/ml INJECTION SQ PRN ×2 (06:33→12:58)
--- NOTE | 2018-01-11 11:56 | Pharmacy Consult- Renal Dosing ---
Pharamcy Consul-Renal Dosing - Consult Information RENAL DOSING: LEVAQUIN 750 MG IV Q24HRS Today's SCr = 1.2 mg/dl. Calculated CrCl = 33 ml/min. Change Levaquin to 750 mg IV q48hrs starting on her 3rd dose. 01/10/18 750 mg 01/11/18 750 mg 01/12/18 (no dose) 01/13/18 750 mg Pharmacy will continue to monitor patient's renal function. Thank you. Rama Medeiros, PharmD
[2018-01-11] MEDS: GABAPENTIN 300 MG CAPSULE PO SCH ×2 (14:30→21:56)
[2018-01-11] MEDS: HYDROCODONE/APAP 10 MG/325 MG TABLET PO PRN ×3 (14:30→23:38)
[2018-01-11] MEDS ORDERED: ACETAMINOPHEN 500 MG TABLET PO PRN (15:05)
--- NOTE | 2018-01-11 16:57 | History & Physical Report ---
History of Present Illness Date: 01/11/18 HPI: Pt had a bout with pna 5 weeks ago after which she has been on chronic O2. Pt hasn't recovered fully since that episode and started feeling overall ill with sob for which her pcp recommended pt visit ED. Pt currently reports she feels okay today but overall feels like she has declined since that initial pna event 5 weeks ago. Her sob has become chronic since than. She denies any n/v/d, cp or f/c. She denies any cough. Reports feeling weak and fatigued. HPI from overnight: Very pleasant 87-year-old female presented to the emergency room this evening after she begin feeling worse with shortness of breath and back pain. She became ill about five weeks ago was hospitalized for a few days treated for pneumonia. She said shes not been back to her usual self since then, but has been doing fairly OK. Over the past few days shes felt worse with some cough and shortness of breath and also some back pain in the upper and lateral back ribs. She uses 2 L of oxygen at home usually,She was deciding to 85% on that 2 L while in the emergency room. She had been prescribed doxycycline and had taken a single dose today, but her primary care doctor had one of her admittedly , she wanted to try it at home, but she was encouraged to she felt worse to come to the emergency room which she did this evening. She slightly anorexic, she denies any nausea vomiting or abdominal pain. She denies diarrhea. She is generally mildly week. Shes feeling better after some treatment she received in the emergency room. Past Medical History Medical History: Medical History (Last Reviewed 01/10/18 @ 15:12 by BERRY Cage) Osteoarthritis of both knees (Chronic) Generalized osteoarthritis (Chronic) Osteoarthritis of left shoulder (Chronic) Insomnia (Chronic) Hypercalcemia (Chronic) Depression (Chronic) COPD (chronic obstructive pulmonary disease) (Chronic) Chronic colitis (Chronic) Benign essential hypertension (Chronic) Good control. Anxiety (Chronic) Allergic rhinitis (Chronic) Hypothyroidism associated with surgical procedure (Chronic) Onset Date: ~2007 Clinically euthyroid; confirm chemically. Thyroid cancer (Chronic) Onset Date: ~2007 No clinical evidence of cancer recurrence. Hyperparathyroidism, primary (Chronic) Onset Date: ~2006 Asymptomatic. Asthma DJD of shoulder Hay fever Thyrotoxicosis Hx of severe sun exposure Malignant neoplasm of breast Ovarian cancer Pulmonary embolism Surgical History: Bilateral rotator cuffs replacement. Hysterectomy-1981. Thyroidectomy-2009. Left breast mastectomy-2010 Family History: Family History (Last Reviewed 01/10/18 @ 15:12 by BERRY Cage) Sister Thyroid disease Cancer of breast Father Heart disease Mother Heart disease Brother Cancer of lung Brother Cancer of colon Brother Cancer of kidney Sister Cancer of lung Family History: No Significant Family History - Social History Smoking status: Former smoker Medications Home Medications Medication Instructions Recorded Confirmed Type Gabapentin 300 mg PO TID 12/01/17 01/11/18 History Sertraline [Zoloft] 50 mg PO DAILY 12/01/17 01/11/18 History Trazodone [Desyrel] 150 mg PO HS 12/01/17 01/11/18 History hydroCHLOROthiazide 25 mg PO DAILY 12/01/17 01/11/18 History [Hydrochlorothiazide] Acetaminophen [Tylenol] 1,000 mg PO Q5H PRN tab 12/04/17 01/11/18 Rx Cyanocobalamin (Vitamin B-12) 1 tab PO DAILY #30 tab 12/04/17 01/11/18 Rx [Vitamin B-12] PredniSONE [Deltasone 5 mg] 5 mg PO DAILY #35 tab 12/04/17 01/11/18 Rx Pulmicort (Budesonide) 0.5 mg/2 mL 2 ml INH Q12H #120 ml 12/05/17 01/11/18 Rx suspension for nebulization levothyroxine 25 mcg tablet 25 mcg PO ACB #90 tab 12/11/17 01/11/18 Rx sulfasalazine 500 mg tablet 0.5 g PO TID #180 tab 12/11/17 01/11/18 Rx Xanax (alprazolam) 0.5 mg tablet 1 mg PO HS #60 tab 12/16/17 01/11/18 Rx [place] 10 mg-acetaminophen 325 mg 1 tab PO TID PRN #90 tab 01/07/18 01/11/18 Rx tablet Lasix (Furosemide) 20 mg tablet 20 mg PO DAILY PRN #30 tab 01/10/18 01/11/18 Rx doxycycline hyclate 100 mg capsule 100 mg PO BID #20 cap 01/10/18 01/11/18 Rx ipratropium-albuterol 0.5 mg-3 3 ml INH BID ml 01/10/18 01/11/18 History mg(2.5 mg base)/3 mL nebulization soln pseudoephedrine-guaifenesin ER 120 1 tab PO BID 01/10/18 01/11/18 History mg-1,200 mg tab,extend release 12hr Allergies Allergy/AdvReac Type Severity Reaction Status Date / Time nitrofurantoin Allergy Severe Hives Verified 01/10/18 15:05 azithromycin Allergy Unknown EXTREME Verified 01/10/18 15:05 BOWEL UPSET Exam Vital Signs: Temperature 97.7 F 01/11/18 16:00 Pulse Rate 76 01/11/18 16:00 Respiratory Rate 18 01/11/18 16:00 Blood Pressure 124/60 01/11/18 16:00 Pulse Oximetry 90 01/11/18 16:00 Height/Weight/BMI: Height 5 ft 3 in Weight 82.2 kg Body Mass Index 32.0 - Routine HEENT Exam Head: Present: normocephalic, atraumatic Eye: Present: EOMI ENT: Present: mucous membranes moist - Routine Respiratory Exam Present: CTA bilaterally. Absent: rales, wheezes - Routine Cardiovascular Exam Present: RRR, no murmur - Routine Abdominal Exam Present: soft, non distended, non tender - Routine Extremities Exam Present: no edema. Absent: cyanosis, clubbing - Routine Skin Exam Present: intact, dry. Absent: erythema - Routine Neurological Exam Present: alert, oriented X3 - Routine Psychiatric Exam Present: normal affect Results - Labs CBC & Chem 7: 01/10/18 23:41 01/11/18 11:16 Assessment and Plan (1) Benign essential hypertension Problem details: Good control. Current visit: No Status: Chronic (2) COPD (chronic obstructive pulmonary disease) Current visit: Yes Status: Chronic (3) CAP (community acquired pneumonia) Current visit: No Status: Acute (4) Chronic respiratory failure with hypoxia Current visit: No Status: Chronic (5) Right upper lobe pneumonia Current visit: Yes Status: Acute (6) Hypoxemia Current visit: Yes Status: Acute (7) Hypokalemia Current visit: Yes Status: Acute Assessment and Plan: Persistent PNA?? -Unclear if this is recurrent vs. persistent vs. just residual radiology findings -Pt denies any cough, f/c, reports some SOB but reports its not bad with her O2 on -On levaquin, will discuss CT findings with radiology -Order resp panel Mild COPD exacerbation? -No cough, mild sob increase -Will do breathing tx's, prednisone Chronic Hypoxic Respiratory failure -Seems stable, sill on 2L O2 that she was on at home -Order ABG Hypokalemia -Pt put on lasix for a few days without K supplements -Replace Neuropathy -Cont. home gabapentin HTN -Cont. home HCTZ Hypothyroid -Cont. home levo Depression -Cont. home setraline UC -Cont. home sulfasalazine Anxiety -Cont. home Xanax Chronic Pain -Cont. home hydrocodone Ppx -SCDs - Physician Narrative Narrative: Date: 01/11/18 Time: 1652 Hospital Course Summary Disclaimer: The visit summary below is not to be considered part of the above Progress Note.
[2018-01-11] MEDS: ACETAMINOPHEN 325 MG TABLET PO PRN ×2 (18:40→23:37)
[2018-01-11] MEDS: ALBUTEROL 2.5mg/3ml (0.083%) NEB AEROSOL SCH (20:10)
[2018-01-11] MEDS: GUAIFENESIN/DM 5ml ORAL LIQUID PO PRN (21:55)
[2018-01-11] MEDS: ALPRAZolam 0.5 MG TABLET PO SCH (21:56)
[2018-01-11] MEDS: TRAZODONE 100 MG TABLET PO SCH (21:57)
[2018-01-12] MEDS: LEVOTHYROXINE 25 MCG TABLET PO SCH (06:20)
[2018-01-12] MEDS: ALBUTEROL 2.5mg/3ml (0.083%) NEB AEROSOL SCH ×4 (07:47→19:07)
[2018-01-12] MEDS: GABAPENTIN 300 MG CAPSULE PO SCH ×3 (08:56→21:55)
[2018-01-12] MEDS: PredniSONE 20 MG TABLET PO SCH (08:56)
[2018-01-12] MEDS: CYANOCOBALAMIN (B-12) 500mcg TABLET PO SCH (08:57)
[2018-01-12] MEDS: SERTRALINE 50 MG TABLET PO SCH (08:57)
[2018-01-12] MEDS: GUAIFENESIN/DM 5ml ORAL LIQUID PO PRN (08:58)
--- NOTE | 2018-01-12 09:37 | CT Scan Report ---
Indication: CP/RUL consolidation without fever PROCEDURE: CT angio pulm emboli: Encounter: Initial Comparison: None Technique: Axial CT pulmonary angiographic phase images were performed through the chest after the administration of intravenous contrast. Coronal and Sagittal MIP reconstructed images were created and reviewed. Automated Exposure Control and Iterative Reconstruction dose reducing techniques were utilized. Contrast: Omnipaque 350 60 mL Findings: Pulmonary arteries: Exam is diagnostic to the subsegmental pulmonary arterial level. No filling defects identified to suggest a pulmonary embolus. Other findings: Patchy airspace consolidation and groundglass opacity in the right upper lobe. Medial right lower lobe scarring and pleural thickening. Minimal left basilar atelectasis. No pneumothorax or pleural effusion. 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 No axillary or mediastinal adenopathy. Heart is upper limits of normal to mildly enlarged. No pericardial effusion. The upper abdomen shows no acute findings. Impression: No pulmonary embolus. Right upper lobe pneumonia. There is a preliminary report by [facility]. .
[2018-01-12] MEDS: HYDROCODONE/APAP 10 MG/325 MG TABLET PO PRN ×3 (10:22→20:48)
--- NOTE | 2018-01-12 14:00 | Progress Note ---
- Date 01/12/18 Subjective: Pt reports she's feeling better. Still denies any cough or change in sob from weeks ago. Pt denies any cp, n/v/d. Pt is ambulating well and tolerating PO intake well. Objective Vital signs: Temperature 98.1 F 01/12/18 08:00 Pulse Rate 80 01/12/18 08:00 Respiratory Rate 16 01/12/18 11:47 Blood Pressure 128/64 01/12/18 08:00 Pulse Oximetry 93 01/12/18 11:47 Height/Weight/BMI: Height 5 ft 3 in Weight 83.7 kg Body Mass Index 32.0 - Constitutional Present: no acute distress - Routine HEENT Exam Head: Present: normocephalic, atraumatic - Routine Respiratory Exam Present: CTA bilaterally. Absent: wheezes, crackles - Routine Cardiovascular Exam Present: RRR, no murmur - Routine Abdominal Exam Present: soft, non distended, non tender - Routine Extremities Exam Present: edema. Absent: cyanosis, clubbing - Routine Skin Exam Present: intact, dry. Absent: erythema - Routine Neurological Exam Present: alert, oriented X3 - Routine Psychiatric Exam Present: normal affect Results - Labs CBC & Chem 7: 01/12/18 05:06 01/12/18 05:06 - ABG Interpretation ABG results: 01/11/18 18:11 VBG pH 7.449 H VBG pCO2 40.2 VBG pO2 191.6 H VBG HCO3 27.9 H VBG Total CO2 29.1 VBG O2 Saturation TNP VBG Base Excess 3.6 Assessment and Plan (1) Benign essential hypertension Problem details: Good control. Current visit: No Status: Chronic (2) COPD (chronic obstructive pulmonary disease) Current visit: Yes Status: Chronic (3) CAP (community acquired pneumonia) Current visit: No Status: Acute (4) Chronic respiratory failure with hypoxia Current visit: No Status: Chronic (5) Right upper lobe pneumonia Current visit: Yes Status: Acute (6) Hypoxemia Current visit: Yes Status: Acute (7) Hypokalemia Current visit: Yes Status: Acute Assessment and Plan: Persistent PNA?? -Unclear if this is recurrent vs. persistent vs. just residual radiology findings -It seems that this is most likely residual radiology findings as pt denies any cough, f/c, and SOB is at baseline since last pna episode, procal is negative and WBC on admission was wnls -Will keep on levaquin for now, discussed possibility of this being residual findings with and he noted it is possible -Resp panel neg Mild COPD exacerbation? -No cough, mild sob increase -Will do breathing tx's, prednisone Chronic Hypoxic Respiratory failure -Seems stable, sill on 2L O2 that she was on at home -Order ABG Hypokalemia -Pt put on lasix for a few days without K supplements -Replace Neuropathy -Cont. home gabapentin HTN -Cont. home HCTZ Hypothyroid -Cont. home levo Depression -Cont. home setraline UC -Cont. home sulfasalazine Anxiety -Cont. home Xanax Chronic Pain -Cont. home hydrocodone Ppx -SCDs - Physician Narrative Narrative: Date: 01/12/18 Time: 1349 Hospital Course Summary Disclaimer: The visit summary below is not to be considered part of the above Progress Note. Hospital Course: 01/12/18 Pt improving, unclear if anything acute really going on as most of the clinical picture seems consistent with a chronic picture that started with last pna episode about 5 weeks ago. Pt on her baseline O2, minimal sx's, cont. abx and steroid tx and plan for discharge tomorrow.
[2018-01-12] MEDS: ALPRAZolam 0.5 MG TABLET PO SCH (21:53)
[2018-01-12] MEDS: TRAZODONE 100 MG TABLET PO SCH (21:54)
[2018-01-13] MEDS: LEVOTHYROXINE 25 MCG TABLET PO SCH (06:25)
[2018-01-13] MEDS: ACETAMINOPHEN 325 MG TABLET PO PRN (06:29)
[2018-01-13] MEDS: ALBUTEROL 2.5mg/3ml (0.083%) NEB AEROSOL SCH ×2 (07:29→11:42)
[2018-01-13 08:23] VITALS: BP 118/60; PULSE 65; TEMP 96.3
[2018-01-13] MEDS: CYANOCOBALAMIN (B-12) 500mcg TABLET PO SCH (09:24)
[2018-01-13] MEDS: PredniSONE 20 MG TABLET PO SCH (09:24)
[2018-01-13] MEDS: SERTRALINE 50 MG TABLET PO SCH (09:25)
[2018-01-13] MEDS: GABAPENTIN 300 MG CAPSULE PO SCH (09:25)
--- NOTE | 2018-01-13 10:31 | Progress Note ---
- Date 01/13/18 Subjective: F/U: questionable new pneumonia vs. persistent radiologic evidence of previous pneumonia, mild COPD exacerbation. Gregoria is seen this morning while she is preparing for her day and putting on her make up. She reports that she is feeling "great" and is eager for discharge. She reports that she slept well and her appetite is stable. She is breathing easily on room air without cough or signs of distress. No chest pain , shortness of breath, abdominal pain, nausea, vomiting or dysuria. Labs are stable and blood cultures remain negative x 2 days. Plan to discharge home today. Objective Vital signs: Temperature 96.3 F L 01/13/18 08:20 Pulse Rate 65 01/13/18 08:20 Respiratory Rate 22 01/13/18 08:20 Blood Pressure 118/60 01/13/18 08:20 Pulse Oximetry 91 01/13/18 08:20 Height/Weight/BMI: Height 5 ft 3 in Weight 185 lb 3.013 oz Body Mass Index 32.0 Comments: Standing at her sink in her room, putting on make up. Breathing easily on room air. - Constitutional Present: no acute distress, well nourished, well developed, obese, cooperative - Routine HEENT Exam Head: Present: normocephalic, atraumatic Eye: Present: PERRL. Absent: conjunctival icterus ENT: Present: mucous membranes moist, oropharynx clear - Routine Respiratory Exam Present: decreased breath sounds. Absent: respiratory distress, wheezes Comments: Breathing easily on room air. No cough or conversational dyspnea. - Routine Cardiovascular Exam Present: RRR, S1, S2 - Routine Abdominal Exam Present: soft, normoactive bowel sounds, non tender - Routine Extremities Exam Present: edema (trace), full ROM, pulses intact - Routine Back/Spine/Pelvis Exam Back/Spine: Present: full ROM. Absent: vertebral tenderness - Routine Musculoskeletal Exam Musculoskeletal: Present: no clubbing or cyanosis, moving extremities well - Routine Skin Exam Present: intact, dry, warm Comments: Afebrile. - Routine Neurological Exam Present: alert, oriented X3, moving all extremities, hearing grossly intact, normal speech - Routine Lymphatic Exam Lymphatic: Absent: lymphedema - Routine Psychiatric Exam Present: normal affect, cooperative Results - Labs CBC & Chem 7: 01/12/18 05:06 01/13/18 05:18 - ABG Interpretation ABG results: 01/11/18 18:11 VBG pH 7.449 H VBG pCO2 40.2 VBG pO2 191.6 H VBG HCO3 27.9 H VBG Total CO2 29.1 VBG O2 Saturation TNP VBG Base Excess 3.6 Assessment and Plan (1) Benign essential hypertension Problem details: Good control. Current visit: No Status: Chronic (2) COPD (chronic obstructive pulmonary disease) Current visit: Yes Status: Chronic (3) CAP (community acquired pneumonia) Current visit: No Status: Acute (4) Chronic respiratory failure with hypoxia Current visit: No Status: Chronic (5) Right upper lobe pneumonia Current visit: Yes Status: Acute (6) Hypoxemia Current visit: Yes Status: Chronic (7) Hypokalemia Current visit: Yes Status: Resolved Assessment and Plan: Persistent PNA vs. new pneumonia -Unclear if this is recurrent vs. persistent vs. just residual radiology findings. -It seems that this is most likely residual radiology findings as pt denies any cough, f/c, and SOB is at baseline since last pna episode, procal is negative and WBC on admission was wnls -Will keep on Levaquin for now, discussed possibility of this being residual findings with and he noted it is possible -Resp panel neg Mild COPD exacerbation? -No cough, mild sob increase on admission - improving. -Continue breathing tx's, prednisone Chronic Hypoxic Respiratory failure -Seems stable, sill on 2L O2 that she was on at home - at baseline Hypokalemia - resolved. -Resolved with replacement. Continue to monitor Neuropathy -Cont. home gabapentin HTN -Cont. home HCTZ - blood pressure controlled. Hypothyroid -Cont. home levo Depression -Cont. home setraline UC -Cont. home sulfasalazine Anxiety -Cont. home Xanax Chronic Pain -Cont. home hydrocodone Ppx -SCDs DVT Prophylaxis: SCD's Resuscitation Status: Do Not Resuscitate - Time spent with patient Time with patient PN: 25 minutes - Physician Narrative Physician: other (Dr. Hood) Narrative: Date: 01/13/18 Time: 1028 Hospital Course Summary Disclaimer: The visit summary below is not to be considered part of the above Progress Note. Hospital Course: 01/12/18 Pt improving, unclear if anything acute really going on as most of the clinical picture seems consistent with a chronic picture that started with last pna episode about 5 weeks ago. Pt on her baseline O2, minimal sx's, cont. abx and steroid tx and plan for discharge tomorrow. 01/13/18 Overall, doing well and back to baseline per patient. Labs unremarkable. Hypokalemia resolved. Plan to discharge home today on Levaquin x 3 more days to complete course. Patient to follow up with PCP in 3-7 days for recheck.
[2018-01-13] MEDS ORDERED: LEVOFLOXACIN PB 750 MG/150 ML BAG IV SCH (10:45)
--- NOTE | 2018-01-13 11:07 | Discharge Summary ---
Discharge Information Date of admission: 01/11/18 01:12 Anticipated date of discharge: 01/13/18 Attending Physician: Oumar Hood MD Primary care physician: Pratima Kent APRN - Discharge Diagnosis (1) Right upper lobe pneumonia Status: Acute (2) CAP (community acquired pneumonia) Status: Acute (3) COPD (chronic obstructive pulmonary disease) Status: Chronic (4) Chronic respiratory failure with hypoxia Status: Chronic (5) Hypoxemia Status: Chronic (6) Benign essential hypertension Status: Chronic (7) Hypokalemia Status: Resolved Persistent pneumonia vs. new pneumonia. Mild COPD exacerbation - resolved. Chronic hypoxic respiratory failure on 2L O2 at home. Chronic neuropathy. Chronic hypertension. Chronic hypothyroidism. Chronic depression. Chronic ulcerative colitis. Chronic anxiety. Chronic pain. Hypokalemia - resolved. - Laboratory Labs: Laboratory Tests 01/10/18 01/10/18 01/11/18 23:41 23:41 03:30 WBC 9.5 RBC 3.76 L Hgb 10.6 L Hct 32.9 L MCV 87.5 MCH 28.2 MCHC 32.2 RDW Std Deviation 48.8 Plt Count 224 MPV 8.8 L Immature Gran % (Auto) 0.2 Neut % (Auto) 55.2 Lymph % (Auto) 34.4 [place] % (Auto) 9.6 H Eos % (Auto) 0.4 Baso % (Auto) 0.2 Neut # (Auto) 5.2 Lymph # (Auto) 3.3 [place] # (Auto) 0.9 H Eos # (Auto) 0.0 Baso # (Auto) 0.0 Abs Immat Gran (auto) 0.02 VBG pH VBG pCO2 VBG pO2 VBG HCO3 VBG Total CO2 VBG O2 Saturation VBG Base Excess Turbidity < 20 Sodium 141 Potassium 2.7 L* Chloride 95 L Carbon Dioxide 32 H Anion Gap 14 BUN 25.0 H Creatinine 1.2 GFR Calculation 42 BUN/Creatinine Ratio 21 Glucose 108 Glucometer Calculated Osmolality 276 Calcium 9.8 Phosphorus Magnesium Total Bilirubin 0.60 Conjugated Bilirubin TNP Unconjugated Bilirubin < -0.30 L Icterus Index < 2 AST 24 ALT 17 Alkaline Phosphatase 62 Total Creatine Kinase C-Reactive Protein Total Protein 6.9 Albumin 4.1 Globulin 2.8 Albumin/Globulin Ratio 1.5 Plasma Lactate 1.2 0.7 Procalcitonin Specimen Hemolysis < 15 Adenovirus (PCR) B.parapertussis DNA PCR C. pneumoniae DNA (PCR) Coronavirus OC43 (PCR) Coronavirus HKU1 (PCR) Coronavirus 229E (PCR) Coronavirus NL63 (PCR) Human Metapneumovir PCR Influenza Type A (PCR) Influenza Type B (PCR) M. pneumoniae (PCR) Parainfluenza 1 (PCR) Parainfluenza 2 (PCR) Parainfluenza 3 (PCR) Parainfluenza 4 (PCR) RSV (PCR) Entero/Rhino (PCR) 01/11/18 01/11/18 01/11/18 06:29 11:15 11:16 WBC RBC Hgb Hct MCV MCH MCHC RDW Std Deviation Plt Count MPV Immature Gran % (Auto) Neut % (Auto) Lymph % (Auto) [place] % (Auto) Eos % (Auto) Baso % (Auto) Neut # (Auto) Lymph # (Auto) [place] # (Auto) Eos # (Auto) Baso # (Auto) Abs Immat Gran (auto) VBG pH VBG pCO2 VBG pO2 VBG HCO3 VBG Total CO2 VBG O2 Saturation VBG Base Excess Turbidity Sodium Potassium 4.1 D Chloride Carbon Dioxide Anion Gap BUN Creatinine GFR Calculation BUN/Creatinine Ratio Glucose Glucometer 196 232 Calculated Osmolality Calcium Phosphorus Magnesium Total Bilirubin Conjugated Bilirubin Unconjugated Bilirubin Icterus Index AST ALT Alkaline Phosphatase Total Creatine Kinase C-Reactive Protein Total Protein Albumin Globulin Albumin/Globulin Ratio Plasma Lactate Procalcitonin Specimen Hemolysis < 15 Adenovirus (PCR) B.parapertussis DNA PCR C. pneumoniae DNA (PCR) Coronavirus OC43 (PCR) Coronavirus HKU1 (PCR) Coronavirus 229E (PCR) Coronavirus NL63 (PCR) Human Metapneumovir PCR Influenza Type A (PCR) Influenza Type B (PCR) M. pneumoniae (PCR) Parainfluenza 1 (PCR) Parainfluenza 2 (PCR) Parainfluenza 3 (PCR) Parainfluenza 4 (PCR) RSV (PCR) Entero/Rhino (PCR) 01/11/18 01/11/18 01/11/18 17:59 18:11 18:16 WBC RBC Hgb Hct MCV MCH MCHC RDW Std Deviation Plt Count MPV Immature Gran % (Auto) Neut % (Auto) Lymph % (Auto) [place] % (Auto) Eos % (Auto) Baso % (Auto) Neut # (Auto) Lymph # (Auto) [place] # (Auto) Eos # (Auto) Baso # (Auto) Abs Immat Gran (auto) VBG pH 7.449 H VBG pCO2 40.2 VBG pO2 191.6 H VBG HCO3 27.9 H VBG Total CO2 29.1 VBG O2 Saturation TNP VBG Base Excess 3.6 Turbidity Sodium Potassium Chloride Carbon Dioxide Anion Gap BUN Creatinine GFR Calculation BUN/Creatinine Ratio Glucose Glucometer Calculated Osmolality Calcium Phosphorus Magnesium Total Bilirubin Conjugated Bilirubin Unconjugated Bilirubin Icterus Index AST ALT Alkaline Phosphatase Total Creatine Kinase C-Reactive Protein Total Protein Albumin Globulin Albumin/Globulin Ratio Plasma Lactate Procalcitonin < 0.05 Specimen Hemolysis Adenovirus (PCR) Negative B.parapertussis DNA PCR Negative C. pneumoniae DNA (PCR) Negative Coronavirus OC43 (PCR) Negative Coronavirus HKU1 (PCR) Negative Coronavirus 229E (PCR) Negative Coronavirus NL63 (PCR) Negative Human Metapneumovir PCR Negative Influenza Type A (PCR) Negative Influenza Type B (PCR) Negative M. pneumoniae (PCR) Negative Parainfluenza 1 (PCR) Negative Parainfluenza 2 (PCR) Negative Parainfluenza 3 (PCR) Negative Parainfluenza 4 (PCR) Negative RSV (PCR) Negative Entero/Rhino (PCR) Negative 01/11/18 01/11/18 01/12/18 18:16 21:01 05:06 WBC 11.2 H RBC 3.47 L Hgb 9.4 L D Hct 30.6 L MCV 88.2 MCH 27.1 MCHC 30.7 L RDW Std Deviation 50.3 H Plt Count 247 MPV 9.3 L Immature Gran % (Auto) 0.4 Neut % (Auto) 67.7 H Lymph % (Auto) 21.7 L [place] % (Auto) 10.1 H Eos % (Auto) 0.1 Baso % (Auto) 0.0 Neut # (Auto) 7.6 Lymph # (Auto) 2.4 [place] # (Auto) 1.1 H Eos # (Auto) 0.0 Baso # (Auto) 0.0 Abs Immat Gran (auto) 0.04 H VBG pH VBG pCO2 VBG pO2 VBG HCO3 VBG Total CO2 VBG O2 Saturation VBG Base Excess Turbidity Sodium Potassium Chloride Carbon Dioxide Anion Gap BUN Creatinine GFR Calculation BUN/Creatinine Ratio Glucose Glucometer 179 Calculated Osmolality Calcium Phosphorus Magnesium Total Bilirubin Conjugated Bilirubin Unconjugated Bilirubin Icterus Index AST ALT Alkaline Phosphatase Total Creatine Kinase 61 C-Reactive Protein Total Protein Albumin Globulin Albumin/Globulin Ratio Plasma Lactate Procalcitonin Specimen Hemolysis Adenovirus (PCR) B.parapertussis DNA PCR C. pneumoniae DNA (PCR) Coronavirus OC43 (PCR) Coronavirus HKU1 (PCR) Coronavirus 229E (PCR) Coronavirus NL63 (PCR) Human Metapneumovir PCR Influenza Type A (PCR) Influenza Type B (PCR) M. pneumoniae (PCR) Parainfluenza 1 (PCR) Parainfluenza 2 (PCR) Parainfluenza 3 (PCR) Parainfluenza 4 (PCR) RSV (PCR) Entero/Rhino (PCR) 01/12/18 01/12/18 01/12/18 05:06 06:19 16:41 WBC RBC Hgb Hct MCV MCH MCHC RDW Std Deviation Plt Count MPV Immature Gran % (Auto) Neut % (Auto) Lymph % (Auto) [place] % (Auto) Eos % (Auto) Baso % (Auto) Neut # (Auto) Lymph # (Auto) [place] # (Auto) Eos # (Auto) Baso # (Auto) Abs Immat Gran (auto) VBG pH VBG pCO2 VBG pO2 VBG HCO3 VBG Total CO2 VBG O2 Saturation VBG Base Excess Turbidity < 20 Sodium 140 Potassium 3.9 Chloride 101 D Carbon Dioxide 29 Anion Gap 10 BUN 29.0 H Creatinine 1.0 D GFR Calculation 52 BUN/Creatinine Ratio 29 H Glucose 115 H Glucometer 124 158 Calculated Osmolality 276 Calcium 9.5 Phosphorus 3.1 Magnesium 2.0 Total Bilirubin Conjugated Bilirubin Unconjugated Bilirubin Icterus Index < 2 AST ALT Alkaline Phosphatase Total Creatine Kinase C-Reactive Protein 38.8 H Total Protein Albumin 3.4 L Globulin Albumin/Globulin Ratio Plasma Lactate Procalcitonin Specimen Hemolysis < 15 Adenovirus (PCR) B.parapertussis DNA PCR C. pneumoniae DNA (PCR) Coronavirus OC43 (PCR) Coronavirus HKU1 (PCR) Coronavirus 229E (PCR) Coronavirus NL63 (PCR) Human Metapneumovir PCR Influenza Type A (PCR) Influenza Type B (PCR) M. pneumoniae (PCR) Parainfluenza 1 (PCR) Parainfluenza 2 (PCR) Parainfluenza 3 (PCR) Parainfluenza 4 (PCR) RSV (PCR) Entero/Rhino (PCR) 01/13/18 05:18 WBC RBC Hgb Hct MCV MCH MCHC RDW Std Deviation Plt Count MPV Immature Gran % (Auto) Neut % (Auto) Lymph % (Auto) [place] % (Auto) Eos % (Auto) Baso % (Auto) Neut # (Auto) Lymph # (Auto) [place] # (Auto) Eos # (Auto) Baso # (Auto) Abs Immat Gran (auto) VBG pH VBG pCO2 VBG pO2 VBG HCO3 VBG Total CO2 VBG O2 Saturation VBG Base Excess Turbidity < 20 Sodium 142 Potassium 4.0 Chloride 103 Carbon Dioxide 31 H Anion Gap 8 BUN 31.0 H Creatinine 0.9 GFR Calculation 59 BUN/Creatinine Ratio 34 H Glucose 95 Glucometer Calculated Osmolality 280 Calcium 9.9 Phosphorus 3.5 Magnesium Total Bilirubin Conjugated Bilirubin Unconjugated Bilirubin Icterus Index < 2 AST ALT Alkaline Phosphatase Total Creatine Kinase C-Reactive Protein Total Protein Albumin 3.3 L Globulin Albumin/Globulin Ratio Plasma Lactate Procalcitonin Specimen Hemolysis 76 H Adenovirus (PCR) B.parapertussis DNA PCR C. pneumoniae DNA (PCR) Coronavirus OC43 (PCR) Coronavirus HKU1 (PCR) Coronavirus 229E (PCR) Coronavirus NL63 (PCR) Human Metapneumovir PCR Influenza Type A (PCR) Influenza Type B (PCR) M. pneumoniae (PCR) Parainfluenza 1 (PCR) Parainfluenza 2 (PCR) Parainfluenza 3 (PCR) Parainfluenza 4 (PCR) RSV (PCR) Entero/Rhino (PCR) - Microbiology Microbiology 01/10/18 23:41 Peripheral/Iv Start Blood Culture - Preliminary No Growth After 2 Days 01/10/18 23:41 Peripheral/Iv Start Blood Culture - Preliminary No Growth After 2 Days - Radiology Radiology: Date of Exam: 01/10/18 Type of Exam(s): CT angio pulm emboli Reason for Exam(s): CP/RUL consolidation without fever Findings: Pulmonary arteries: Exam is diagnostic to the subsegmental pulmonary arterial level. No filling defects identified to suggest a pulmonary embolus. Other findings: Patchy airspace consolidation and groundglass opacity in the right upper lobe. Medial right lower lobe scarring and pleural thickening. Minimal left basilar atelectasis. No pneumothorax or pleural effusion. 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 No axillary or mediastinal adenopathy. Heart is upper limits of normal to mildly enlarged. No pericardial effusion. The upper abdomen shows no acute findings. Impression: No pulmonary embolus. Right upper lobe pneumonia. History of Present Illness HPI: Pt had a bout with pna 5 weeks ago after which she has been on chronic O2. Pt hasn't recovered fully since that episode and started feeling overall ill with sob for which her pcp recommended pt visit ED. Pt currently reports she feels okay today but overall feels like she has declined since that initial pna event 5 weeks ago. Her sob has become chronic since than. She denies any n/v/d, cp or f/c. She denies any cough. Reports feeling weak and fatigued. HPI from overnight: Very pleasant 87-year-old female presented to the emergency room this evening after she begin feeling worse with shortness of breath and back pain. She became ill about five weeks ago was hospitalized for a few days treated for pneumonia. She said shes not been back to her usual self since then, but has been doing fairly OK. Over the past few days shes felt worse with some cough and shortness of breath and also some back pain in the upper and lateral back ribs. She uses 2 L of oxygen at home usually,She was deciding to 85% on that 2 L while in the emergency room. She had been prescribed doxycycline and had taken a single dose today, but her primary care doctor had one of her admittedly , she wanted to try it at home, but she was encouraged to she felt worse to come to the emergency room which she did this evening. She slightly anorexic, she denies any nausea vomiting or abdominal pain. She denies diarrhea. She is generally mildly week. Shes feeling better after some treatment she received in the emergency room. Objective Vital signs: Temperature 96.3 F L 01/13/18 08:20 Pulse Rate 65 01/13/18 08:20 Respiratory Rate 22 01/13/18 08:20 Blood Pressure 118/60 01/13/18 08:20 Pulse Oximetry 91 01/13/18 08:20 Height/Weight/BMI: Height 5 ft 3 in Weight 185 lb 3.013 oz Body Mass Index 32.0 Hospital Course This is a general summary of the patient's hospital course. For more details refer to the complete medical record. Hospital course: She was admitted to [facility] [place] 12/01/17-12/04/17 for pneumonia and reports that she was doing well until around 12/31/17 when she felt like her symptoms might be getting worse. On 12/31/17 she had a CXR which revealed resolving right upper lobe pneumonia. She was treated with a course of Levaquin at that time which was completed on 01/09. Due to increased body aches and chills with dry cough and increased dyspnea, she was seen and evaluated in clinic by her PCP on and diagnosed with persistent or recurrent right upper lobe airspace disease concerning for pneumonia via chest-x-ray. She was started on doxycycline outpatient with instructions to continue her nebulized treatments and home oxygen. Due to worsening dyspnea, she presented to [facility] ED on the night of 01/10. CTA chest was obtained and revealed no pulmonary embolus and right upper lobe pneumonia. Labs revealed normal WBC (9.5), mild anemia (hgb 10.6) and hypokalemia (K 2.7). She was admitted to the hospitalist service for treatments. While in the ED, she was started on vancomycin and Zosyn with continuation of her home Levaquin. Respiratory cares were provided including albuterol treatments and prednisone 40mg daily was started. She quickly showed improvement and was breathing back at her baseline. She remained afebrile without leukocytosis posing question of if her pneumonia is recurrent or persistent. Given how well she looked clinically, Zosyn and vancomycin were discontinued and she remained on Levaquin. She was able to maintain her saturations on her baseline oxygen demands and quickly became anxious to return home. Labs remained unremarkable and electrolyte imbalances were corrected. Plan to discharge home today, 01/13/18, with instructions to complete Levaquin course and follow up with PCP. Time spent with patient: greater than 35 minutes Resuscitation Status: Do Not Resuscitate Discharge Plan - Discharge Disposition Discharge Date: 01/13/18 Disposition: 01 Discharged Home, Self-Care *Condition: Stable Reason For Visit (Visit label in EMR): recurrent RUL Pneumonia - Discharge Medications *Discharge Medications: New PredniSONE [Deltasone 20 mg] 40 mg PO WB #5 tab Potassium Chloride 20 meq PO WB #30 tab.er.prt Levofloxacin [Levaquin] 750 mg PO DAILY #2 tab Continue Trazodone [Desyrel] 150 mg PO HS Sertraline [Zoloft] 50 mg PO DAILY Cyanocobalamin (Vitamin B-12) [Vitamin B-12] 1 tab PO DAILY #30 tab hydroCHLOROthiazide [Hydrochlorothiazide] 25 mg PO DAILY Gabapentin 300 mg PO TID Acetaminophen [Tylenol] 1,000 mg PO Q5H PRN tab PRN Reason: Discomfort PredniSONE [Deltasone 5 mg] 5 mg PO DAILY #35 tab levothyroxine 25 mcg tablet 25 mcg PO ACB #90 tab Xanax (alprazolam) 0.5 mg tablet 1 mg PO HS #60 tab albuterol sulfate 2.5 mg/3 mL (0.083 %) solution for nebulization 2.5 mg CONTINOUS .x1 #3 ml [place] 10 mg-acetaminophen 325 mg tablet 1 tab PO TID PRN #90 tab PRN Reason: Pain ipratropium-albuterol 0.5 mg-3 mg(2.5 mg base)/3 mL nebulization soln 3 ml INH BID ml Lasix (Furosemide) 20 mg tablet 20 mg PO DAILY PRN #30 tab PRN Reason: edema Pulmicort (Budesonide) 0.5 mg/2 mL suspension for nebulization 2 ml INH Q12H #120 ml sulfasalazine 500 mg tablet 0.5 g PO TID #180 tab pseudoephedrine-guaifenesin ER 120 mg-1,200 mg tab,extend release 12hr 1 tab PO BID Discontinued doxycycline hyclate 100 mg capsule 100 mg PO BID #20 cap - Discharge Packet/Instructions *Diet: Regular *Activity: As tolerated *Pain Management/Treatment: Tylenol 650mg every 6 hours as needed. Home [place] 10/325mg three times daily as needed. *Wound Care: none Additional Instructions: Follow up with Pratima Kent APRN, within the next week. Call to schedule appointment. Rest and use home oxygen and breathing treatments as indicated as needed. You were started on Levaquin 750mg daily to be started on 01/14/18 x 2 days. Take all medications as directed until complete. *Expected Signs/Symptoms: Gradual improvement. *Notify Physician if: fever >101, increased shortness of breath, chest pain, shortness of breath, abdominal pain, nausea, vomiting or diarrhea, additional questions or concerns. *During Business Hours Contact: Pratima Kent, . *After Business Hours Contact: the on-call doctor for Pratima Kent at [phone] or the emergency room. *Pending Lab/Results: No Pending Lab - Referrals/Follow Up *Referrals/Follow Up: Pratima Kent APRN [Primary Care Provider] - 1 Week (Call to schedule. APPOITMENT ON 01/20 AT 10:30.) - Patient Handouts Patient Handouts: Pneumonia (GEN) - Dismissal Complete Discharge Instructions are:: Complete Physician Narrative - Narrative Attestation Narrative: Date: 01/13/18 Time: 1404 Pt did well on day of discharge and felt comfortable going home. Unclear if pt really had any acute pna or if imaging just showed residual pna from prior episode. Pt had no WBC elevation on admission and procal was negative. Pt had minimal sx's and her O2 requirement was improved from her baseline of 2L to 1L on discharge. Pt was discharged to complete 5 total days of abx and prednisone.
[2018-01-13 11:50] VITALS: RESP 18; O2SAT 93
[2018-01-13] MEDS: HYDROCODONE/APAP 10 MG/325 MG TABLET PO PRN (12:20)
== END 2018-01-13 15:04 | disposition home or self-care (01) | DRG 194 ==
LOC: ED 23:15 → EDHOLD 01-11 01:12 → MED 01-11 01:15
PROVIDERS: ADMIT Pediatrics; ATTEND Internal Medicine